=== PATIENT | female | born 1960 | race Caucasian/White ===

== ENCOUNTER → 2017-10-10 | Outpatient (CLI) | payer BC ==
[~2017-10-10] MED LIST: ACE325 PO; LOR5 PO; VITAMINS
--- NOTE | 2017-10-10 11:23 | RADIOLOGY IMAGING REPORT ---
FACILITY: [facility] PATIENT NAME: Vandana Benito : 1960 MR: [id number] V: [id number] EXAM DATE: ORDERING PHYSICIAN: POLLY BACON TECHNOLOGIST: Location: [facility] Patient: Vandana Benito : 1960 Visit/Account:[id number] Date of Sevice: 10/10/2017 Chest 2 views: HISTORY: Malignant pleural effusion, cough, lung cancer COMPARISON: 06/27/2017 FINDINGS: Frontal and lateral chest: Since prior study, left chest port has been placed with catheter placement via a left IJ approach. Tip of the catheter is near the right atrial SVC junction. There is persistent opacification of the left upper lobe now with some associated volume loss. Left hemid iaphragm is elevated posteriorly. Opacification likely combination of atelectasis and/or infiltrate and underlying neoplasm per the history. No definite pleural effusion is present. Right lung is candy ar. Heart size is difficult to assess due to adjacent opacity. No pneumothorax is identified. Pulm onary vasculature is grossly normal. Degenerative changes are present in the thoracic spine. IMPRESSION: 1. Interval placement of a left chest port, catheter tip near the right atrial SVC junction. 2. Opacification involving the left upper lobe similar to previous although there is increasing volu me loss on the left as evidenced by elevation of the left hemidiaphragm. No definite pleural effusio n present. 3. Right lung is clear. Report Dictated By: Cynthia Gorman MD at 10/10/2017 11:11 AM Report E-Signed By: Cynthia Gorman MD at 10/10/2017 11:18 AM WSN:[id number]
--- NOTE | 2017-10-10 13:46 | RADIOLOGY IMAGING REPORT ---
FACILITY: [facility] PATIENT NAME: Vandana Benito : 1960 MR: [id number] V: [id number] EXAM DATE: ORDERING PHYSICIAN: POLLY BACON TECHNOLOGIST: Location: [facility] Patient: Vandana Benito : 1960 Visit/Account:[id number] Date of Sevice: 10/10/2017 CHEST W/O CONTRAST History: Left upper lobe malignancy TECHNIQUE: Contiguous axial images were performed through the chest to the level of the adrenal gla nds. No IV contrast was administered. Coronal and sagittal reformatting was also performed. One of t he following dose optimization techniques was utilized in the performance of this exam: Automated exp osure control; adjustment of the mA and/or kV according to the patient's size; or use of an iterative reconstruction technique. Specific details can be referenced in the facility's radiology CT exam o perational policy. COMPARISON STUDIES: Comparison made to previous chest CT 06/27/2017 and comparison made to a PET/CT performed on 08/21/2017. Lungs / Pleura: There was increase in consolidation of the left upper lobe between the June and August comparison studies listed above. There is complete consolidation the left upper lobe. This m ay represent expansion of the known biopsy-proven bronchogenic malignancy but could also represent a component of obstructive atelectasis. Interval development of a small left pleural effusion. There is interstitial prominence seen in the left lung base which is stable and there is also a stable 2.5 cm bulla in the left lower lobe. In the right lung there are 3 micronodules identified seen axial images 49, 58 and 67 series 3. They all measure 2 mm in diameter.Two of the 3 nodules are identified in the June study. The third nodu le is near the diaphragm and is not seen on the prior study but could easily have been volume average d out by respiratory motion. Mediastinum/nodes: There is no adenopathy. The largest mediastinal lymph node measures 1.1 cm diamet er. The previous PET/CT demonstrated left axillary and left basicervical lymph nodes demonstrating wa rm glucose uptake. Morphologically they appear within normal limits but per previous PET could reflec t early jj disease. Heart and vessels: negative. Musculoskeletal / Body wall: negative. Upper abdomen: Visualized portions of the liver appear normal. IMPRESSION: Completely consolidated left upper lobe with accompanying small left pleural effusion. There is a kno wn left upper lobe bronchogenic malignancy but some of the consolidated lung represents obstructive a telectasis. Several micronodules in the right lung. One appears new since June but could easily have been volu me averaged out on the prior study since it is near the diaphragm which is affected by respiratory mo tion. On this examination there is no definite evidence of metastatic disease outside of the left lung but previous PET/CT raised concern for early jj involvement in the left axilla and neck. Report Dictated By: Ben Tovar MD at 10/10/2017 1:25 PM Report E-Signed By: eBn Tovar MD at 10/10/2017 1:42 PM WSN:[id number]
== END ==
LOC: CT 10:42
PROVIDERS: ATTEND Internal Medicine
DX: R91.8 Other nonspecific abnormal finding of lung field (principal); J90 Pleural effusion, not elsewhere classified
CPT/HCPCS: 71046; 71250

== ENCOUNTER 2017-12-26 16:11 | Emergency (ER) | payer BC ==
[~2017-12-26 16:11] MED LIST changes: +CEPH500T7 PO; +CLIN30SO TOP; +LORA-1455 PO; +PROC10TA4 PO; +TRIA15CR40 TP; +[UNRECOGNIZED DRUG - CODE] PO
--- NOTE | 2017-12-26 16:19 | ER Report ---
History and Physical Time Seen By MD: 16:18 HPI/ROS CHIEF COMPLAINT: Red streaking to bilateral lower extremity HISTORY OF PRESENT ILLNESS: 57-year-old female patient presents to emergency room with complaint of red streaking to the bilateral lower extremities. Patient states she woke up this morning with the red streaks. Patient denies having any pain to them. Patient states she does have a significant amount of itching there. She states she is not taking any medication for this. She did contact the cancer center. She states they're concerned about possible DVT and recommended she come up to the emergency room for evaluation. Patient states that she's not had any DVTs in the past, averages have a history of lung cancer. Patient has not taken any medication for this. She states that her lower legs are itchy just for the red streaks are and nowhere else. REVIEW OF SYSTEMS: Respiratory: No cough, no dyspnea. Cardiovascular: No chest pain, no palpitations. Gastrointestinal: No vomiting, no abdominal pain. Musculoskeletal: No back pain. Allergies: Coded Allergies: No Known Drug Allergies (Verified , 12/26/17) Home Meds Active Scripts Hydroxyzine Hcl (HYDROXYZINE HCL) 25 Mg Tablet, 25 MG PO QID Y for ITCHING, #20 TAB Prov:LUISA ANGLIN [facility] 12/26/17 Prochlorperazine Maleate (Compazine) 10 Mg Tablet, 10 MG PO Q6H, #30 TAB 3 Refills Prov:[facility], [facility] 10/21/17 Lorazepam (ATIVAN) 0.5 Mg Tablet, 0.5 MG PO Q4-6H Y for NAUSEA for 30 Days, #30 TAB 1 Refill Prov:[facility] 10/21/17 Erlotinib (TARCEVA) 150 Mg Tab, 150 MG PO DAILY, #30 TAB 11 Refills Prov:[facility]HELLE [facility] 10/21/17 Reported Medications Cephalexin 500 Mg Tab (KEFLEX 500 MG TAB) 500 Mg Tablet, 500 MG PO Q12H, #20 TAB 12/10/17 Clindamycin Phosphate (Clindamycin Phosphate) 1 % Solution, TOP BID 11/26/17 Triamcinolone Acetonide 0.1% Cr 15 Gm Tube (TRIAMCINOLONE ACETONIDE 0.1% CREAM) 15 Gm Cream..g., 15 GM TP BID, TUBE 11/18/17 Acetaminophen/Hydrocodone (Lortab 5/500) 5 Mg/500 Mg Tab, 1 TAB PO Q6H Y, #15 0 Refills 03/28/11 Acetaminophen (Tylenol) 325 Mg Tab, 1 - 2 TAB PO ONCE, 0 Refills 03/28/11 Discontinued Reported Medications [Vitamins] No Conflict Check, 0 Refills 03/28/11 Past Medical/Surgical History Patient has a past medical history of lung cancer. Patient has surgical history of sinus surgery. Reviewed Nurses Notes: Yes Hx Smoking: No Smoking Status: Never Smoker Hx Substance Use Disorder: No Hx Alcohol Use: No Constitutional Vital Sign - Last 24 Hours 12/26/17 16:18 Temp 98.7 Pulse 62 Resp 20 B/P (MAP) 145/91 Pulse Ox 97 O2 Delivery Nasal Cannula Physical Exam General Appearance: The patient is alert, has no immediate need for airway protection and no current signs of toxicity. Respiratory: Chest is non tender, lungs are clear to auscultation. Cardiac: regular rate and rhythm Gastrointestinal: Abdomen is soft and non tender, no masses, bowel sounds normal. Musculoskeletal: Neck: Neck is supple and non tender. Extremities have full range of motion and are non tender. Patient has 1+ edema to bilateral lower extremities. Skin: No rashes or lesions. Patient has red streaking study bilateral lower extremity is, the red streaks go from ankle to the knee. DIFFERENTIAL DIAGNOSIS: After history and physical exam differential diagnosis was considered for allergic reaction, rash, DVT. Medical Decision Making Data Points Result Diagram: 12/26/17 1644 Laboratory Hematology Test 12/26/17 16:44 Red Blood Count 5.08 M/uL (4.17-5.56) Mean Corpuscular Volume 84.8 fL (80.0-96.0) Mean Corpuscular Hemoglobin 29.3 pg (26.0-33.0) Mean Corpuscular Hemoglobin Concent 34.5 g/dL (32.0-36.0) Red Cell Distribution Width 14.3 % (11.5-14.5) Mean Platelet Volume 8.2 fL (7.2-11.1) Neutrophils (%) (Auto) 61.1 % (39.4-72.5) Lymphocytes (%) (Auto) 25.9 % (17.6-49.6) Monocytes (%) (Auto) 9.7 % (4.1-12.4) Eosinophils (%) (Auto) 2.8 % (0.4-6.7) Basophils (%) (Auto) 0.5 % (0.3-1.4) Nucleated RBC Relative Count (auto) 0.0 /100WBC Neutrophils # (Auto) 5.3 K/uL (2.0-7.4) Lymphocytes # (Auto) 2.2 K/uL (1.3-3.6) Monocytes # (Auto) 0.8 K/uL (0.3-1.0) Eosinophils # (Auto) 0.2 K/uL (0.0-0.5) Basophils # (Auto) 0.0 K/uL (0.0-0.1) Nucleated RBC Absolute Count (auto) 0.00 K/uL Prothrombin Time 13.5 seconds (12.0-14.4) Prothromb Time International Ratio 1.03 Activated Partial Thromboplast Time 50 seconds (23-35) Chemistry Test 12/26/17 16:44 White Blood Count 8.7 k/uL (4.5-11.0) Red Blood Count 5.08 M/uL (4.17-5.56) Hemoglobin 14.9 g/dL (12.0-16.0) Hematocrit 43.1 % (34.0-47.0) Mean Corpuscular Volume 84.8 fL (80.0-96.0) Mean Corpuscular Hemoglobin 29.3 pg (26.0-33.0) Mean Corpuscular Hemoglobin Concent 34.5 g/dL (32.0-36.0) Red Cell Distribution Width 14.3 % (11.5-14.5) Platelet Count 232 K/uL (150-450) Mean Platelet Volume 8.2 fL (7.2-11.1) Neutrophils (%) (Auto) 61.1 % (39.4-72.5) Lymphocytes (%) (Auto) 25.9 % (17.6-49.6) Monocytes (%) (Auto) 9.7 % (4.1-12.4) Eosinophils (%) (Auto) 2.8 % (0.4-6.7) Basophils (%) (Auto) 0.5 % (0.3-1.4) Nucleated RBC Relative Count (auto) 0.0 /100WBC Neutrophils # (Auto) 5.3 K/uL (2.0-7.4) Lymphocytes # (Auto) 2.2 K/uL (1.3-3.6) Monocytes # (Auto) 0.8 K/uL (0.3-1.0) Eosinophils # (Auto) 0.2 K/uL (0.0-0.5) Basophils # (Auto) 0.0 K/uL (0.0-0.1) Nucleated RBC Absolute Count (auto) 0.00 K/uL Prothrombin Time 13.5 seconds (12.0-14.4) Prothromb Time International Ratio 1.03 Activated Partial Thromboplast Time 50 seconds (23-35) Coagulation Test 12/26/17 16:44 Prothrombin Time 13.5 seconds Prothromb Time International Ratio 1.03 Activated Partial Thromboplast Time 50 seconds EKG/Imaging Imaging Exam type: VENOUS DOPP LOWER BILAT EXTREM History: Redness and swelling of lower extremities Comparison: June 27, 2017. Findings: Lower extremity veins were imaged bilaterally including the common femoral veins greater saphenous veins superficial femoral veins popliteal veins posterior tibial veins peroneal veins and anterior tibial veins revealing no evidence of intraluminal thrombi. The veins were compressible and demonstrated augmentation IMPRESSION: 1. No sonographic evidence of DVT involving the lower extremity veins bilaterally Report Dictated By: Jacinta Bateman MD at 12/26/2017 6:13 PM Report E-Signed By: Jacinta Bateman MD at 12/26/2017 6:14 PM ED Course/Re-evaluation ED Course Patient has a medication exam room, history and physical were obtained. Differential diagnoses were considered. On examination patient had red streaking to the anterior aspect of the lower leg. Patient states they've been itching all day. I believe this likely a rash, could be secondary to her Tarceva that she is taking, however I'm uncertain. I discussed this with the patient. We will go ahead and do an ultrasound to make sure there is not a DVT. A CBC and PT and PTT were done. The results were negative. Ultrasound lower extremities was done which was also negative. I discussed the findings with the patient. We will go ahead and discharge her home at this time. We will give her a prescription for hydroxyzine to help with her itching. Discusses patient who verbalized understanding and agreement. I did attempt to contact the cancer Center while she is here to see if I get an appointment for. As I was unable to we will go ahead and discharge patient home and have her make a follow-up appointment tomorrow. Patient verbalized understanding and agreement with plan. Decision to Disposition Date: Dec 26, 2017 Decision to Disposition Time: 18:07 Depart Departure Latest Vital Signs Vital Signs Date Time Temp Pulse Resp B/P (MAP) Pulse Ox O2 Delivery O2 Flow Rate FiO2 12/26/17 16:18 98.7 62 20 145/91 97 Nasal Cannula Impression: Primary Impression: Rash Condition: Improved Disposition: HOME OR SELF-CARE Referrals: ERIC CHURCH MD (PCP) New Scripts Hydroxyzine Hcl (HYDROXYZINE HCL) 25 Mg Tablet 25 MG PO QID Y for ITCHING, #20 TAB Prov: LUISA ANGLIN 12/26/17 Patient Instructions: Acute Rash (ED) Additional Instructions: This could be caused by the medications or something that you came in contact with last night. Take medication as needed for itching. Get plenty of rest. Follow up with the cancer center, call tomorrow to make an appointment. I did try to call them but was unable to get through to them. Return to the ER if condition worsens. LUISA ANGLIN Dec 26, 2017 16:19
[2017-12-26 16:50] LABS: PLATELET COUNT, AUTOMATED 232 K/uL (150-450)
[2017-12-26 16:59] LABS: INR 1.03
[2017-12-26] MEDS ORDERED: HYDR-4225 PO (18:06)
[2017-12-26] MEDS ORDERED: HEPARIN FLSH (PORT) 500 UN/5ML IVP ONE (18:15)
--- NOTE | 2017-12-26 18:19 | RADIOLOGY IMAGING REPORT ---
FACILITY: [facility] - [place] PATIENT NAME: Vandana Benito : 1960 MR: [id number] V: [id number] EXAM DATE: [id number] ORDERING PHYSICIAN: LUISA ANGLIN TECHNOLOGIST: Location: [facility] [place] Patient: Vandana Benito : 1960 Visit/Account:[id number] Date of Sevice: 12/26/2017 Exam type: VENOUS DOPP LOWER BILAT EXTREM History: Redness and swelling of lower extremities Comparison: June 27, 2017. Findings: Lower extremity veins were imaged bilaterally including the common femoral veins greater saphenous ve ins superficial femoral veins popliteal veins posterior tibial veins peroneal veins and anterior tibi al veins revealing no evidence of intraluminal thrombi. The veins were compressible and demonstrated augmentation IMPRESSION: 1. No sonographic evidence of DVT involving the lower extremity veins bilaterally Report Dictated By: Jacinta Bateman MD at 12/26/2017 6:13 PM Report E-Signed By: Jacinta Bateman MD at 12/26/2017 6:14 PM WSN:[id number]
[2017-12-26 18:30] VITALS: BP 139/86
== END 2017-12-26 18:29 | disposition home or self-care (01) ==
LOC: ER 16:43
DX: R21 Rash and other nonspecific skin eruption (principal); Z85.118 Personal history of other malignant neoplasm of bronchus and lung; R60.0 Localized edema; M79.89 Other specified soft tissue disorders
CPT/HCPCS: 85025; 85610; 85730; 93970; 99284; J1642

== ENCOUNTER 2018-01-08 10:30 | Outpatient (RCR) | payer BC ==
--- NOTE | 2017-10-21 15:06 | ONC Progress Note - NP.Halsey ---
Patient History Date of Service Oct 21, 2017 Reason For Visit/HPI Patient is a 57-year-old female who is referred by Dr. Lozano and Dr. Jim for her newly diagnosed lung adenocarcinoma. Patient presented with wheezing, cough and shortness of breath. Patient is here today for education prior to starting treatment with oral Tarceva. She has a friend with her today. 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 Patient is currently on oxygen therapy 2 L per nasal cannula. Patient had flu vaccination in May and has not had a pneumonia vaccination. Problem List (1) Requires oxygen therapy (2) H/O shortness of breath (3) Non-small cell carcinoma of lung Oncology History Patient is a 57-year-old female who presented with newly diagnosed lung adenocarcinoma. She presented with wheezing, cough and shortness of breath. 06/17/2017 CT angiogram shows no pulmonary embolism but consolidation of the left upper lobe was noted 08/02/2017: CT chest worsening consolidation of the left upper lobe. 08/08/2017: Bronchoscopy with pathology showing malignant cells which were adenocarcinoma of lung origin. 08/21/2017: PET/CT with hypermetabolic uptake in the subcarinal area, hypermetabolic bilateral supraclavicular and base of the neck lymph nodes 09/11/2017 MRI of the brain no metastasis Patient presented with good energy level, 30 pound weight loss over 6 months. 10/21/2017 education regarding oral Tarceva. Psychosocial History Social History Patient is single, currently lives with her mother and provides care. 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 Alcohol History She denies abuse Recreational Drug History No use Smoking History: No Smoking Status: Never Smoker Medications and Allergies Active Scripts Prochlorperazine Maleate (Compazine) 10 Mg Tablet, 10 MG PO Q6H, #30 TAB 3 Refills Prov:MICHELLE LINK-BC, ONC 10/21/17 Lorazepam (ATIVAN) 0.5 Mg Tablet, 0.5 MG PO Q4-6H Y for NAUSEA for 30 Days, #30 TAB 1 Refill Prov:MICHELLE LINK, ONC 10/21/17 Erlotinib (TARCEVA) 150 Mg Tab, 150 MG PO DAILY, #30 TAB 11 Refills Prov:MICHELLE LINK-ALYSSIA, ONC 10/21/17 Reported Medications Acetaminophen/Hydrocodone (Lortab 5/500) 5 Mg/500 Mg Tab, 1 TAB PO Q6H Y, #15 0 Refills 03/28/11 Acetaminophen (Tylenol) 325 Mg Tab, 1 - 2 TAB PO ONCE, 0 Refills 03/28/11 [Vitamins] No Conflict Check, 0 Refills 03/28/11 Discontinued Scripts Prochlorperazine Maleate (Compazine) 10 Mg Tablet, 10 MG PO Q6H, #30 TAB 3 Refills Prov:MICHELLE LINK [facility]-, ONC 10/21/17 Lorazepam (ATIVAN) 0.5 Mg Tablet, 0.5 MG PO Q4-6H Y for NAUSEA for 30 Days, #30 TAB 1 Refill Prov:MICHELLE LINK [facility], ONC 10/21/17 Allergies: Coded Allergies: No Known Drug Allergies (Verified , 03/28/11) Review of System/Physical Exam Review of Systems All Systems Reviewed/Normal: Yes, Except as Noted Respiratory: Positive for Shortness of Breath Hematologic: Positive for Fatigue Physical Exam Vital Signs Temperature: Pulse: BP Systolic: BP Diastolic: Respiratory Rate: O2 SAT: O2 Delivery: Height (inches) Weight lb: Weight oz: Weight Kg (Justice): Pain: ECOG Score: 1 General: Stable, Well Developed, Well Nourished, Not In Acute Distress, Other ( on oxygen therapy per nasal cannula) Lungs: Other (patient has port in the left subclavian chest wall.) Psychiatric: Mood appears normal, Affect appears normal, Other (she has a friend with her today. Patient is alert and oriented and appears to understand her form of treatment and management of her disease.) Chemo Education Chemotherapy Education: Patient is seen today for education regarding treatment with oral Tarceva. Patient will take 150 mg by mouth daily 1 hour before meals or 2 hours after labs will be monitored monthly with a CMP The treatment schedule and associated appointments were discussed and reviewed. A print out will be given to the patient. The intent for treatment is palliative. Consent for treatment was completed prior to receiving treatment. Side effects possible with oral Tarceva may include interstitial lung disease with symptoms of lung problems to include shortness of breath, cough and fever. Liver and kidney problems with creatinine changes. Gastrointestinal perforation which may include a whole that develops in the stomach or intestine. Patient is encouraged to avoid NSAIDs and steroids. Serious skin conditions such as blistering and skin peeling. Education material regarding side effects and management of side effects of these above possibilities were reviewed with patient today. Patient understands that she is to take medication once a day the same time daily if possible one hour before or 2 hours after eating. Tarceva can cause harm to an unborn baby. Patient is not at an age for breast- feeding or conceiving. Patient is to contact the clinic if she experiences any side effects listed above. If patient has diarrhea she is encouraged to use Imodium right ear [id number] as instructed. If symptoms continue over 48 hours she is to call the clinic. Patient is not to take any herbal supplements or grapefruit or grapefruit juice while taking Tarceva. Patient will moisturize hands and feet using alcohol free moisturizer products. If her rash develops patient is to call the clinic and may be prescribed steroid therapy at that time. Patient is to keep the medication in a dry place and away from children. Patient is encouraged to wash hands after administration. Prescriptions for Compazine 10 mg when necessary nausea and Ativan 0.5 mg when necessary anxiety and nausea were sent to selected pharmacy. Side effects of both medications were also reviewed today. A consent was signed. Assessment and Plan Assessment & Plan This is a 57-year-old woman who consult it with Dr. Lozano and Dr. Valle for her newly diagnosed lung adenocarcinoma. Patient was noted to have consolidation in the left upper lobe. PET/CT scan showed hypermetabolic uptake in the subcarinal area, hypermetabolic bilateral supraclavicular and base of the neck lymph nodes. No brain metastasis noted. Patient will start therapy with oral Tarceva 150 mg daily as soon as insurance has approved it. Compazine and Ativan were prescribed. Patient will follow monthly with a CBC and CMP and port flush. Consent was was signed. I would like to have patient come into the clinic when she receives the medication so we can verify correct dosage prior to starting an answer any questions that she may have at that time. Patient at that time we'll have a port flush, CBC and a CMP. Patient agrees with this plan of care. She has not had a pneumonia vaccination so will receive Prevnar 13 today this will be followed by PPSV 23 in 8 weeks. I personally spent a total of 40 minutes. Of that 40 minutes was counseling/ coordination of patient's care. See my note above for details. Copies to: ESTELLA VALLE MD; BEN LOZANO MD, NANCY J TOMATO PULPER OPERATOR-BC, ONC Oct 21, 2017 15:06
[2017-10-21 15:45] VITALS: BP 142/75
[2017-10-28 13:17] VITALS: BP 142/91
[2017-10-28 13:39] LABS: PLATELET COUNT, AUTOMATED 264 K/uL (150-450)
[2017-10-28] MEDS: LIDOCAINE/SOD BICARB 8.4% SYR ID PRN (13:44)
[2017-10-28] MEDS: HEPARIN FLSH (PORT) 500 UN/5ML IVP PRN (13:44)
[2017-11-18] MEDS: LIDOCAINE/SOD BICARB 8.4% SYR ID PRN (14:42)
[2017-11-18] MEDS: HEPARIN FLSH (PORT) 500 UN/5ML IVP PRN (14:42)
[2017-11-18 15:21] LABS: PLATELET COUNT, AUTOMATED 267 K/uL (150-450)
[2017-11-20 13:35] VITALS: BP 129/71
--- NOTE | 2017-11-21 18:13 | ONCOLOGY FOLLOW UP NOTE ---
EVENT DATE: November 20, 2017 REASON FOR FOLLOWUP Metastatic lung adenocarcinoma, estimated EGFR Exon 19 mutation. INTERIM HISTORY Ms. Benito returns to clinic for a follow-up visit today. She is accompanied by her mother. To review, she had previously been followed by Dr. Valle with [facility] in [place], [place]. She had presented in June of 2017 with wheezing, cough, and shortness of breath. A CT angiogram of the chest performed at that time showed no evidence of PE, but there was a consolidation of the left upper lobe. A follow-up CT scan of the chest on August 02 showed worsening consolidation of the left upper lobe, and the patient was sent for bronchoscopy. This was performed on August 08. Pathology revealed evidence of malignant cells, consistent with adenocarcinoma of lung origin. On August 21, [address] PET scan which revealed a hypermetabolic consolidation of the left lower lobe, a 3.5 cm left lower lobe bulla with borderline hypermetabolism, and mild hypermetabolic uptake in the subcarinal area. There was also hypermetabolic bilateral supraclavicular and base of neck lymph nodes. An MRI of the brain performed on September 11 revealed no evidence of TRANSPORTATION DESIGN ENGINEER metastatic disease. An ultrasound guided left thoracentesis was subsequently performed on September 20, and malignant cells were noted, again compatible with metastatic adenocarcinoma of lung origin. Molecular profiling studies were appropriately requested, and an estimated EGFR Exon 19 deletion was noted. There have been insurance associated delays, but the patient was able to begin palliative erlotinib therapy about two weeks ago. Today, the patient reports that she is perhaps feeling a bit better than she had a couple of weeks ago. She remains on supplemental oxygen, but she does get short of breath with exertion. She has an occasional cough, and recently she has had small spots of blood in the sputum. She denies chest pain. Her appetite has been pretty good. She has had loose stools. She has tried Imodium here and there, but she is not using it as much as she could. She has developed a mild acneiform skin rash over the face, chest, and back. She has been using topicals for this with success. The patient lives in [place], and she is here to establish care in this clinic for ease of followup. REVIEW OF SYSTEMS Review of systems is otherwise negative, and all systems were reviewed. ONCOLOGY HISTORY Please see history of present illness. PAST MEDICAL HISTORY 1. Lung adenocarcinoma, as above. 2. Gastroesophageal reflux disease. 3. Hypertension. 4. History of migraine headaches. 5. History of "arthritis." CURRENT MEDICATIONS 1. Triamcinolone cream. 2. Compazine p.r.n. 3. Ativan p.r.n. 4. Tarceva 150 mg p.o. daily. 5. Lortab p.r.n. 6. Tylenol p.r.n. 7. Multivitamin. ALLERGIES No known drug allergies. SOCIAL HISTORY Patient is a nonsmoker. There is no history of alcohol abuse or illicit drug use. FAMILY HISTORY Noncontributory. VITAL SIGNS Temperature is 98.5, blood pressure 129/71, heart rate is 70, respirations 16, oxygen saturation is 94% on 2L nasal cannula. Weight is 107.1 g. PHYSICAL EXAMINATION GENERAL: Patient is alert and oriented times three, in no apparent distress sitting in the exam room chair. She is in good spirits and quite interactive. HEENT: Exam reveals anicteric sclerae. NEUROLOGIC: Exam is grossly nonfocal and her gait is normal. EXTREMITIES: Exam reveals no edema, clubbing or cyanosis. SKIN: Exam reveals a modest/diffuse acneiform rash over the face and neck. LABORATORY STUDIES Reviewed per the [employer] record. IMAGING Please see history of present illness. PATHOLOGY Please see history of present illness. ASSESSMENT AND PLAN Stage IV lung adenocarcinoma, estimated EGFR Exon 19 mutation. I had a good visit with Vandana and her mother today. Symptomatically, she seems to be holding her own. Side effects from Tarceva have been moderate to this point, but expected. Nausea has not been particularly prominent, but she has had loose stools. I have recommended that she increase her use of Imodium to help with this. She has developed a skin rash, but topicals are holding this in check for the time being. Her breathing has not improved substantially, but she has only been on the Tarceva for about two weeks. She remains on supplemental oxygen, and she does get winded with exertion. We will have her ambulate in the clinic today to see whether she may be able to come off of her oxygen. Her labs reveal a mild hypokalemia, likely due to diarrhea. We discussed the use of electrolyte fluids and sports drinks, for example. If she gets her diarrhea under control, this will likely normalize quickly. She has no significant pain at this time. Her performance status is excellent. We discussed the hope that her symptoms will show gradual improvement over time, and that she will continue to have followup here as she continues with palliative erlotinib therapy. I would like to see her back in clinic in one month's time, or sooner if there are questions or concerns. She agrees with this plan. I spent a total of 45 minutes with the patient today, and roughly 40 minutes of this was spent in direct counseling and coordination of care. ROSALIND
[2017-11-27 08:11] VITALS: BP 128/72
--- NOTE | 2017-11-27 09:18 | ONCOLOGY FOLLOW UP NOTE ---
EVENT DATE: November 27, 2017 REASON FOR FOLLOWUP Metastatic lung adenocarcinoma, EGFR Exon 19 mutation. INTERIM HISTORY Ms. Benito returns to clinic for a followup visit today. She is accompanied by her mother. Since I saw her last week, she has continued to have problems with erlotinib rash. She has had more itching of the upper chest, neck, face and back. At times, it is disturbing her sleep. She does continue to use topicals. These have been modestly effective, but the itching persists. She feels that her breathing has improved somewhat. She has been checking her O2 saturation at home at rest, and her saturation usually is in the neighborhood of 90%. She denies chest pain. She has had minimal cough. Her appetite is fair, and her taste for food has changed. She feels that she has lost about a pound over the past week or two. She has gotten her diarrhea under control with Imodium. She reports no new urinary symptoms. Her energy level is fair, and she is able to keep up with her activities of daily living. REVIEW OF SYSTEMS Review of systems is otherwise negative, and all systems were reviewed. ONCOLOGY HISTORY 1. Metastatic lung adenocarcinoma, EGFR Exon 19 mutation. a. June 2017, patient presents with wheezing, cough and shortness of breath. b. CT angiogram at that time shows no evidence of PE, but there was consolidation of left upper lobe. c. Followup CT scan on August 02, 2017 shows worsening consolidation of the left upper lobe, and patient is sent for bronchoscopy. d. August 08, 2017: Bronchoscopy is performed. Pathology reveals evidence of malignant cells, consistent with adenocarcinoma of lung origin. e. August 21, 2017: Patient undergoes CT PET scan, which reveals hypermetabolic consolidation of left lower lobe, and a 3.5 cm left lower lobe bulla with borderline hypermetabolism and mild hypermetabolic uptake in the subcarinal area. There was also bilateral supraclavicular and base of neck lymph nodes. f. September 11, 2017, MRI brain: No evidence of OFFICE SERVICES CLERK metastatic disease. g. September 20, 2017, patient undergoes ultrasound-guided left thoracentesis. Pathology again revealed malignant cells, compatible with metastatic adenocarcinoma of lung origin. Molecular profiling studies are performed, revealing EGFR Exon 19 deletion. h. Early October,: Patient begins palliative erlotinib after some insurance delays. PAST MEDICAL HISTORY 1. Lung adenocarcinoma, as above. 2. Gastroesophageal reflux disease. 3. Hypertension. 4. History of migraine headaches. 5. History of "arthritis." CURRENT MEDICATIONS 1. Triamcinolone cream. 2. Compazine p.r.n. 3. Ativan p.r.n. 4. Tarceva 150 mg p.o. daily. 5. Lortab p.r.n. 6. Tylenol p.r.n. 7. Multivitamin. 8. Clindamycin cream b.i.d. p.r.n. ALLERGIES No known drug allergies. SOCIAL HISTORY Patient is a nonsmoker. There is no history of alcohol abuse or illicit drug use. FAMILY HISTORY Noncontributory. VITAL SIGNS Temperature is 97.6, blood pressure 128/72, pulse is 53, respirations 16, oxygen saturation is 90% on 2 liters. Weight is 105 kg. PHYSICAL EXAMINATION GENERAL: Patient is alert and oriented x 3, in no apparent distress sitting in the exam room chair. She is interactive and pleasant. She is wearing O2 by nasal cannula. HEENT: Exam reveals anicteric sclerae. LUNGS: Exam reveals diminished breath sounds in the bilateral bases, but no wheezing or rales. HEART: Exam reveals regular rate and rhythm. NEUROLOGIC: Exam is grossly nonfocal and her gait is normal. SKIN: Exam reveals acneiform rash, which is modest, over the upper chest, neck , face and upper back. There are some excoriations. There are no other concerning lesions. LABORATORY STUDIES Reviewed per the [employer] record. IMAGING None today. ASSESSMENT AND PLAN Metastatic lung adenocarcinoma, EGFR Exon 19 mutation; erlotinib rash. I had a good visit with Ms. Benito today. We spent time discussing her ongoing experience with palliative erlotinib. To date, she has tolerated treatment with reasonable toxicity. Her GI symptoms are under better control. Imodium has been effective for diarrhea. Nausea has been pretty minimal. Her cough has improved, and it seems that her breathing has some shown some improvement over time as well. For her worsened erlotinib rash, I do not think that it is significant enough to make a dose reduction or hold the medication, but I do think she could benefit from trying an oral antibiotic such as doxycycline. I will write this for her today. She will also ambulate in the hallway to see whether she can liberate herself from her supplemental oxygen. I will make a referral to nutrition, as she does continue to slowly lose weight. I have also recommended that she go to the pharmacy to pick up truck driver a Claritin or Zyrtec, for example, to help her with itching during the day. She can also pick up truck driver some Benadryl to try at night to help with itching and sleep. I will plan to see her back in clinic in about four to six weeks. At that time, we will likely make arrangements for followup CT PET imaging to assess response. The patient and her mother had several further questions for me today, and I believe I answered all of their questions to their satisfaction. ROSALIND
[2017-12-16 13:39] VITALS: BP 143/75
[2018-01-06 12:15] VITALS: BP 126/70
[2018-01-06 12:30] LABS: PLATELET COUNT, AUTOMATED 261 K/uL (150-450)
[~2018-01-08] VITALS: Ht 166.4 cm; Wt 106.8 kg
[~2018-01-08 10:30] MED LIST changes: +ALTEPLASE RECOMB 2 MG VIAL IVP PRN; +DEXTROSE 5%(*) 100 ML BAG 100 ML IVPB PRN; +HYDR-4225 PO; +NS(*) 0.9% 100 ML BAG 100 ML IVPB PRN; +NS(*) 0.9% 500 ML BAG 500 ML IV PRN; +PNEUMOC 13-VAL CONJ-DIP CRM/PF 0.5 ML SYR IM ONLY ONE; +PNEUMOCOC VAC POLY 25MCG/0.5ML IM ONLY ONE; +WATER STERILE 10 ML VIAL IVP PRN
[2018-01-08 10:34] VITALS: BP 141/80
[2018-01-08] MEDS: LIDOCAINE/SOD BICARB 8.4% SYR ID PRN (11:56)
[2018-01-08] MEDS: HEPARIN FLSH (PORT) 500 UN/5ML IVP PRN (11:57)
--- NOTE | 2018-01-08 17:51 | ONCOLOGY FOLLOW UP NOTE ---
EVENT DATE: January 08, 2018 REASON FOR FOLLOWUP Metastatic lung adenocarcinoma, EGFR Exon 19 mutation. INTERIM HISTORY Ms. Benito returns to clinic for a follow-up visit today. She is accompanied by a friend. She reports that she has been doing a bit better since our last visit. She had used doxycycline for a period of time for a skin rash, but she is no longer requiring it. She continues to use topicals with some success at home. She does report good diarrhea control with Imodium, which she tends to take about twice a day on average. Her energy level has been about the same, but she has noticed some potential improvement in her breathing, and she has been able to get away without her oxygen at times during the day. She reports no new pain. She remains on Tarceva, and she feels that her tolerance to the medication has improved somewhat. REVIEW OF SYSTEMS Otherwise negative, and all systems were reviewed. ONCOLOGY HISTORY 1. Metastatic lung adenocarcinoma, EGFR Exon 19 mutation. a. June 2017, patient presents with wheezing, cough and shortness of breath. b. CT angiogram at that time shows no evidence of PE, but there was consolidation of left upper lobe. c. Followup CT scan on August 02, 2017 shows worsening consolidation of the left upper lobe, and patient is sent for bronchoscopy. d. August 08, 2017: Bronchoscopy is performed. Pathology reveals evidence of malignant cells, consistent with adenocarcinoma of lung origin. e. August 21, 2017: Patient undergoes CT PET scan, which reveals hypermetabolic consolidation of left lower lobe, and a 3.5 cm left lower lobe bulla with borderline hypermetabolism and mild hypermetabolic uptake in the subcarinal area. There was also bilateral supraclavicular and base of neck lymph nodes. f. September 11, 2017, MRI brain: No evidence of [employer] metastatic disease. g. September 20, 2017, patient undergoes ultrasound-guided left thoracentesis. Pathology again revealed malignant cells, compatible with metastatic adenocarcinoma of lung origin. Molecular profiling studies are performed, revealing EGFR Exon 19 deletion. h. Early October,: Patient begins palliative erlotinib after some insurance delays. CURRENT MEDICATIONS 1. Hydroxyzine p.r.n. 2. Topical clindamycin. 3. Topical triamcinolone. 4. Compazine p.r.n. 5. Ativan p.r.n. 6. Tarceva 150 mg p.o. daily. 7. Lortab p.r.n. 8. Tylenol p.r.n. ALLERGIES No known drug allergies. SOCIAL HISTORY Patient is a nonsmoker. There is no history of alcohol abuse or illicit drug use. FAMILY HISTORY Noncontributory. VITAL SIGNS Temperature is 97.1, blood pressure 141/80, hear rate is 64, respirations 16, oxygen saturation is 93% on 1 liter. Weight is 106.8 kg. PHYSICAL EXAMINATION GENERAL: Patient is alert and oriented times three, in no apparent distress sitting in the exam room chair. She is in good spirits, and quite interactive. HEENT: Exam reveals anicteric sclerae. NEUROLOGIC: Exam is grossly nonfocal and her gait is normal. EXTREMITIES: Exam reveals no edema, clubbing or cyanosis. There is no erythema or tenderness to palpation of bilateral extremities. SKIN: Exam reveals no concerning lesion, but she does have a Tarceva rash that is similar to prior. LABORATORY STUDIES [facility]. ASSESSMENT AND PLAN Metastatic lung adenocarcinoma, EGFR Exon 19 mutation. Ms. Benito continues on palliative Tarceva, which she is now tolerating better. She has been mitigating her symptoms at home, and she does feel that the treatment regimen is tolerable. We spent time discussing our strategy for re-imaging. She will be due for a follow-up CT PET scan in early January, and I will plan to see her back for a followup after the PET scan to review the results. We will have her ambulate in the hallway today to see if we can again try to get her off of her oxygen. ROSALIND
== END 2018-01-16 ==
LOC: ONC 10:30
PROVIDERS: ATTEND Surgery
DX: C34.12 Malignant neoplasm of upper lobe, left bronchus or lung (principal); Z23 Encounter for immunization; L27.0 Generalized skin eruption due to drugs and medicaments taken internally
CPT/HCPCS: 36415; 36591; 81001; 83735; 85025; 87088; 90471; 90670; 90732; 96523; 99212; J1642; 82040; 82247; 82310; 82374; 82435; 82565; 82947; 84075; 84132; 84155; 84295; 84450; 84460; 84520

== ENCOUNTER 2018-04-09 13:12 | Outpatient (RCR) | payer BC ==
[2018-01-31 16:13] VITALS: BP 133/78
[2018-01-31] MEDS: HEPARIN FLSH (PORT) 500 UN/5ML IVP PRN (16:24)
[2018-02-18 10:12] VITALS: BP 124/67
--- NOTE | 2018-02-19 04:10 | ONCOLOGY FOLLOW UP NOTE ---
EVENT DATE: February 18, 2018 REASON FOR FOLLOWUP Metastatic lung adenocarcinoma, EGFR Exon 19 mutation, ongoing therapy with palliative erlotinib. INTERIM HISTORY Ms. Benito returns to clinic for a followup visit today. Symptomatically, she reports that she has been doing a bit better. She is no longer on oxygen during the day, but she is using it at night. She reports no new pain. She denies fever. She has had an occasional cough. She has not been exercising much, she attributes this mostly to fatigue. She has had pretty regular bowel habits, but her biggest issue has been ongoing acneiform rash, especially over the chest and back. She is using moisturizers mostly for this. She has not been taking an antibiotic. She has undergone a CT PET scan, and she is here to review the results. REVIEW OF SYSTEMS Otherwise negative, and all systems were reviewed. ONCOLOGY HISTORY 1. Metastatic lung adenocarcinoma, EGFR Exon 19 mutation. a. June 2017, patient presents with wheezing, cough and shortness of breath. b. CT angiogram at that time shows no evidence of PE, but there was consolidation of left upper lobe. c. Followup CT scan on August 02, 2017 shows worsening consolidation of the left upper lobe, and patient is sent for bronchoscopy. d. August 08, 2017: Bronchoscopy is performed. Pathology reveals evidence of malignant cells, consistent with adenocarcinoma of lung origin. e. August 21, 2017: Patient undergoes CT PET scan, which reveals hypermetabolic consolidation of left lower lobe, and a 3.5 cm left lower lobe bulla with borderline hypermetabolism and mild hypermetabolic uptake in the subcarinal area. There was also bilateral supraclavicular and base of neck lymph nodes. f. September 11, 2017, MRI brain: No evidence of [employer] metastatic disease. g. September 20, 2017, patient undergoes ultrasound-guided left thoracentesis. Pathology again revealed malignant cells, compatible with metastatic adenocarcinoma of lung origin. Molecular profiling studies are performed, revealing EGFR Exon 19 deletion. h. Early October,: Patient begins palliative erlotinib after some insurance delays. i. CT PET scan performed on February 14, 2018: Interval positive response to therapy. Significant interval reexpansion of left upper lobe with some minimum consolidation in the lingula. FDG uptake in the consolidated left upper lobe now has a max SUV of 4.7, previously 13.4. Interval resolution of the FDG avid supraclavicular adenopathy with no new sites of disease. There is a small left- sided pleural effusion and a small pericardial effusion, which are new without FDG uptake. There are stable bullae in the left lower lobe without significant FDG uptake. CURRENT MEDICATIONS 1. Hydroxyzine p.r.n. 2. Topical clindamycin. 3. Topical triamcinolone. 4. Compazine p.r.n. 5. Ativan p.r.n. 6. Tarceva 150 mg p.o. daily. 7. Lortab p.r.n. 8. Tylenol p.r.n. ALLERGIES No known drug allergies. SOCIAL HISTORY Patient is a nonsmoker. There is no history of alcohol abuse or illicit drug use. FAMILY HISTORY Noncontributory. VITAL SIGNS Temperature is 98.2, blood pressure 124/67, heart rate 69, respirations 16, oxygen saturation is 92% on room air. Weight is 107.6 kg. PHYSICAL EXAMINATION GENERAL: Patient is alert and oriented x three, in no apparent distress, sitting in the exam room chair. She is very pleasant and interactive. HEENT: Exam reveals anicteric sclerae. NEUROLOGIC: Exam is grossly nonfocal and her gait is normal. EXTREMITIES: Exam reveals no edema, clubbing or cyanosis. SKIN: Exam reveals a diffuse acneiform rash over the chest and back, some with excoriation. LABORATORY STUDIES Reviewed per the [facility] record. IMAGING Please see oncology history. ASSESSMENT AND PLAN Metastatic lung adenocarcinoma, ongoing palliative erlotinib therapy. I had a very good visit with Ms. Benito today. Symptomatically, she seems to be doing gradually better. She is no longer on oxygen during the day, and this is a good sign. She is tolerating Tarceva with expected toxicity, with the biggest problems being rash, and to a lesser extent fatigue. We discussed rash management in detail today. I have written her a prescription for minocycline, and we discussed the rationale for antibiotic use. We moved on to discuss the results of her followup CT PET scan. The study shows very encouraging results with a significant reduction in the disease noted within the chest. She does have a very small pleural effusion and a small pericardial effusion that will need to be followed over time. The plan from here will be for her to continue with the Tarceva, to try to get the rash under better control with minocycline, and to follow up here with Meg, our nurse practitioner, in about six weeks. I will plan to see her back in three months after repeat CT PET scan, or sooner if there are questions or concerns. ROSALIND
[2018-02-28 13:31] VITALS: BP 155/69
[2018-02-28] MEDS: HEPARIN FLSH (PORT) 500 UN/5ML IVP PRN (13:48)
[2018-04-01 10:55] VITALS: BP 139/79
--- NOTE | 2018-04-01 12:13 | Oncology Progress Note ---
History of Present Illness Evaluation Evaluation Date: Apr 01, 2018 Evaluation Time: 10:30 Primary Care Provider Primary Care Provider: Pawel Huddleston Accompanied by Accompanied by: Self Last seen by : Shaun Chief Complaint Chief Complaint Generalized skin rash and itchiness. Oncology History Oncology History 1. Metastatic lung adenocarcinoma, EGFR Exon 19 mutation. a. June 2017, patient presents with wheezing, cough and shortness of breath. b. CT angiogram at that time shows no evidence of PE, but there was consolidation of left upper lobe. c. Followup CT scan on August 02, 2017 shows worsening consolidation of the left upper lobe, and patient is sent for bronchoscopy. d. August 08, 2017: Bronchoscopy is performed. Pathology reveals evidence of malignant cells, consistent with adenocarcinoma of lung origin. e. August 21, 2017: Patient undergoes CT PET scan, which reveals hypermetabolic consolidation of left lower lobe, and a 3.5 cm left lower lobe bulla with borderline hypermetabolism and mild hypermetabolic uptake in the subcarinal area. There was also bilateral supraclavicular and base of neck lymph nodes. f. September 11, 2017, MRI brain: No evidence of GRADES 7 AND 8 TEACHER metastatic disease. g. September 20, 2017, patient undergoes ultrasound-guided left thoracentesis. Pathology again revealed malignant cells, compatible with metastatic adenocarcinoma of lung origin. Molecular profiling studies are performed, revealing EGFR Exon 19 deletion. h. Early October,: Patient begins palliative erlotinib after some insurance delays. i. CT PET scan performed on February 14, 2018: Interval positive response to therapy. Significant interval reexpansion of left upper lobe with some minimum consolidation in the lingula. FDG uptake in the consolidated left upper lobe now has a max SUV of 4.7, previously 13.4. Interval resolution of the FDG avid supraclavicular adenopathy with no new sites of disease. There is a small left- sided pleural effusion and a small pericardial effusion, which are new without FDG uptake. There are stable bullae in the left lower lobe without significant FDG uptake. Treatment Treatment ongoing palliative erlotinib therapy HPI HPI Mrs. Ariana Ross, is a very pleasant 57 year old woman who has Metastatic lung adenocarcinoma, EGFR Exon 19 mutation,Dx:10/2017 ongoing therapy with palliative Erlotinib therapy 150 mg p.o. daily. patient is seen today for her acneiform rash of the skin. she reports being in her usual state of health. with no complains. Denies any N/V/, occasional diarrhea uses Imodium PRN. No cardiac type chest pain, Only uses Oxygen at night currently. continues to be on the go and keep active. No bleeding, bruising, night sweats, no fevers, no sore throat, minimal cough. some fatigue, appetite ok. Social/Occupational History Social History: Social History This is a 57 Yr old White female, she is S Single and has [] Children Hx Smoking: No Smoking Status: Never Smoker Allergies & Medications Allergies: Coded Allergies: No Known Drug Allergies (Verified , 12/26/17) Home Meds Active Scripts Minocycline HCl (Minocin) 75 Mg Capsule, 75 MG TOP 1-2XD for 30 Days, BOTTLE Prov:GINA RIGGS-C, ONC 04/01/18 Erlotinib (TARCEVA) 150 Mg Tab, 150 MG PO DAILY, #30 TAB 11 Refills Prov:MICHELLE LINK GYM MANAGER-BC, ONC 10/21/17 Reported Medications Triamcinolone Acetonide 0.1% Cr 15 Gm Tube (TRIAMCINOLONE ACETONIDE 0.1% CREAM) 15 Gm Cream..g., 15 GM TP BID, TUBE 11/18/17 Acetaminophen (Tylenol) 325 Mg Tab, 1 - 2 TAB PO ONCE, 0 Refills 03/28/11 Discontinued Reported Medications Cephalexin 500 Mg Tab (KEFLEX 500 MG TAB) 500 Mg Tablet, 500 MG PO Q12H, #20 TAB 12/10/17 Clindamycin Phosphate (Clindamycin Phosphate) 1 % Solution, TOP BID 11/26/17 Acetaminophen/Hydrocodone (Lortab 5/500) 5 Mg/500 Mg Tab, 1 TAB PO Q6H Y, #15 0 Refills 03/28/11 Discontinued Scripts Hydroxyzine Hcl (HYDROXYZINE HCL) 25 Mg Tablet, 25 MG PO QID Y for ITCHING, #20 TAB Prov:LUISA ANGLIN GYM MANAGER 12/26/17 Prochlorperazine Maleate (Compazine) 10 Mg Tablet, 10 MG PO Q6H, #30 TAB 3 Refills Prov:MICHELLE LINK GYM MANAGER-BC, ONC 10/21/17 Lorazepam (ATIVAN) 0.5 Mg Tablet, 0.5 MG PO Q4-6H Y for NAUSEA for 30 Days, #30 TAB 1 Refill Prov:MICHELLE LINK GYM MANAGER-BC, ONC 10/21/17 Review of Systems Constitution: Denies Appetite/Weight Change, Denies Fever/Chills/Sweating, Denies Recent Infection, Denies Other Respiratory: Cough, No Expectoration, No Hemoptysis, No Shortness of Breath, No OTHER Cardiovascular: No Chest Pain, No Orthopnea, No Edema, No Palpitations, No OTHER Gastrointestinal: No Nausea, No Vomitting, Diarrehea, No Constipation, No Heart Burn, No Swallowing Difficulties, No Abdominal Pain, No Other Gentiourinary: Hematuria Musculoskeletal: No Muscle Pain, No Joint Pain, No Bone Pain, No Other Hematological: No Bleeding, No Weakness, No Enlarged Lyph Nodes, No Bruising, Fatigue, No Other Skin: Skin Rash Psychiatric: No Anxiety, No Depression, No Other Vital Signs Vital Signs Temperature: 98.0 Pulse: 59 BP Systolic: 139 BP Diastolic: 79 Respiratory Rate: 16 O2 SAT: 93 O2 Delivery: Height (feet) Height (inches) 65.50 Weight lb: 245 Weight oz: Weight Kg (Justice): Pain: 0 Physical Exam General: Looks Stable, Well Developed, Well Nourished (In no acute distres) HEENT: HEAD:Atraumatic, No EYES: Conjuctivitis, No EYES: Icterus, No MOUTH: Mucocitis, No MOUTH: Oral Thrush, No SINUS: Tenderness to Palpation, No Other Neck: Supple Lungs: Percussion Bilaterally (Diminshed at base) Heart: Regular Rate and Rhythm, No Gallops, No Murmurs, No Clicks, No Rubs, No Other Abdomen: Soft and Nontender, No Hepatosplenomegaly, No Masses, No Other Extremities: Cyanosis Lymphatics: No Peripheral Lymphadenopathy, No Other Psychiatric: Mood appears normal, Affect appears normal, Other Skin: Skin Rashes (Generalized), No Bruising, No Purpura, No Moist Desquamation , No Dry Desquamation, No Errythema, No Mild Errythema, No Moderate Errythema, No Severe Errythema, No Induration, No Other Breast: No No Masses, No No Nipple Discharge, No No Skin Changes, No Other Assessment and Plan Assessment and Plan Mrs. Ariana Ross, is a very pleasant 57 year old woman who has Metastatic lung adenocarcinoma, EGFR Exon 19 mutation,Dx:10/2017 ongoing therapy with palliative erlotinib therapy 150 mg p.o. daily. patient is seen today for her acneiform rash of the skin. she reports being in her usual state of health. with no complains. ASSESSMENT 1. Metastatic lung adenocarcinoma, EGFR Exon 19 mutation, ongoing therapy with palliative erlotinib therapy. tolerating very well, with significant improvement revealed by CT PET scan performed on February 14, 2018: Interval positive response to therapy. Significant interval reexpansion of left upper lobe with some minimum consolidation in the lingula. FDG uptake in the consolidated left upper lobe now has a max SUV of 4.7, previously 13.4. Interval resolution of the FDG avid supraclavicular adenopathy with no new sites of disease. There is a small left-sided pleural effusion and a small pericardial effusion, which are new without FDG uptake. There are stable bullae in the left lower lobe without significant FDG uptake. 2. Skin rash acneiform type. all over her body skin rash, ongoing since initiated Erlotinib in october 2017. on physical exam there is pronounced skin rash on back, chest, hands and face. in the setting of antineoplastic therapy. expected side effects of Erlotinib given length of symptom presentation. we will add the following to treatment; Triamcinolone 0.1%/chai cream 1:1 ratio compound 480oz. apply to affected skin BID; tetracycline 500mg Po BID # 28 pills; continue taking Hydroxyzine 25mg Po PRN. 3. Poor exercise habits. Patient encouraged to walk, and exercise at least 150minutes per week. we will get physical therapy involved. 4. Obese. BMI>33. Nutrition consult, patient is encourage to eat a balanced diet with fruits and vegetables along with walking every day 5. History of sleep apnea, uses oxygen at night only. PLAN -Continue Erlotinib and f/u per protocol - Triamcinolone 0.1%/chai cream 1:1 ratio compound 480oz. apply to affected skin BID; tetracycline 500mg Po BID # 28 pills; continue taking Hydroxyzine 25mg Po PRN. - patient may use Dial original or any bare soap, free of alcohol, non scented - PT Eval & treat - Nutrition consult - Follow up in 3-7 days for treatment response. patient and Rn to call. - Follow up with Dr. Dnun with repeat CT PET by 05/22/2018 - Patient to call cancer center with any issues or concerns - Patient to use sunscreen and wear long sleeves when outdoors. Education, patient instructed to go to ER immediately and or call Clinic if any Shortness of Breath, Temp >/=100.4, fevers, chills, cardiac type chest pain, bleeding, excessive bruising, headaches, blurry vision, dizziness, abdominal pain, difficulty swallowing, and pain unrelieved by medication. TIME SPENT: 30 minutes 25 > minutes includes but not limited to discussion, counselling and co-ordination~ of care. Discussion with other health care providers, record review, review of lab work, diagnostic tests. Plan discussed extensively with patient. All the questions answered today. Thank you for the opportunity to be involved in the care of Ariana Ross. Billing Level: Return visit 4 GINA RIGGS, ONC Apr 01, 2018 12:13
--- NOTE | 2018-04-02 17:07 | Medical Nutrition Therapy ---
Nutrition Anthropometrics Height (Inches): 66.5 Height (Calculated Centimeters: 166.3700 Weight (Pounds): 238 (patient states she has gained a few pounds recently) Hx Weight Loss: Yes (patient states she has lost ~50lbs in 7 months (since Sep 2017)) Nutritional Education Nutrition Education Topic: Other (Nutrition and Cancer ) Learning Readiness: Interested Teaching Methods: Discussion, Handout Response to Teaching: Verbalize understanding Teaching Recipient: Patient Nutrition Counseling: Provided handout on Eating during and after cancer. Patient indicated that she was having issues with diarrhea, metallic taste and poor appetite. I reviewed information on each issue and encouraged her to review and make a few changes if needed. Recommended patient make a few changed to diet is she is experiencing diarrhea such as low fiber foods and increase fluids Nutrition Monitoring & Eval Nutrition Goals: Eat 90-100% Meal, Drink > 2 liters/day Nutritional Goals Comment: Stabilize weight loss, reduce diarrhea. Nutrition Monitoring: I will monitor nutrition impact symptoms and provide additional education and recommendations as needed RD Patient Assessment Time: [address] Assessment Type: RD Education Nutritional Comment: Encouraged patient to call if she had any questions about the information we reveiwed or experiencing other nutrition impact symptoms. DANNA RENE RDN, IDANIA Apr 02, 2018 17:07
[~2018-04-09] VITALS: Ht 168.9 cm; Wt 108.0 kg
[~2018-04-09 13:12] MED LIST changes: +LIDOCAINE/SOD BICARB 8.4% SYR ID PRN; +MINO75CA2 TOP; -PNEUMOC 13-VAL CONJ-DIP CRM/PF 0.5 ML SYR IM ONLY ONE; -PNEUMOCOC VAC POLY 25MCG/0.5ML IM ONLY ONE; +WATER FOR INJ,STERILE 20 ML IVP PRN; -WATER STERILE 10 ML VIAL IVP PRN
[2018-04-09 13:46] VITALS: BP 145/85
[2018-04-09] MEDS: HEPARIN FLSH (PORT) 500 UN/5ML IVP PRN (13:49)
== END 2018-04-30 ==
LOC: SPU 13:12
PROVIDERS: ATTEND Surgery
DX: C34.92 Malignant neoplasm of unspecified part of left bronchus or lung (principal); R53.83 Other fatigue
CPT/HCPCS: 96523; 99212; J1642

== ENCOUNTER → 2018-05-08 | Outpatient (CLI) | payer BC ==
[~2018-05-08] MED LIST changes: -ALTEPLASE RECOMB 2 MG VIAL IVP PRN; -DEXTROSE 5%(*) 100 ML BAG 100 ML IVPB PRN; -LIDOCAINE/SOD BICARB 8.4% SYR ID PRN; -NS(*) 0.9% 100 ML BAG 100 ML IVPB PRN; -NS(*) 0.9% 500 ML BAG 500 ML IV PRN; -WATER FOR INJ,STERILE 20 ML IVP PRN
== END ==
LOC: SPU 08:09
PROVIDERS: ATTEND Physician Assistant
DX: Z13.220 Encounter for screening for lipoid disorders (principal); R73.01 Impaired fasting glucose; I10 Essential (primary) hypertension

== ENCOUNTER → 2018-05-22 | Outpatient (CLI) | payer BC ==
--- NOTE | 2018-05-22 16:58 | RADIOLOGY IMAGING REPORT ---
FACILITY: [facility] PATIENT NAME: JOE MAZARIEGOS : [id number] MR: [id number] V: [id number] EXAM DATE: ORDERING PHYSICIAN: MIKIE WARREN TECHNOLOGIST: Cara Banks PROCEDURE:BILATERAL DIGITAL SCREENING MAMMOGRAM WITH CAD ASSISTED INTERPRETATION & 3D TOMOSYNTHESIS COMPARISON:None. INDICATIONS:SCREENING FINDINGS: Small amount of fibroglandular tissue is seen throughout the breasts. Just medial to midline on the Right CC view and in the upper portion of the Right breast on the Right MLO view in the middle 1/3 is an ovoid nodular density for which Right breast Ultrasound is recommended. There are at least 2 nodular densities seen in the lateral portion of the Left breast on the Left CC view in the middle 1/3 which appear to be in the upper portion of the Left breast on the Left MLO view for which Spot compression view and Left breast Ultrasound recommended. Spot compression view also recommended for the focal dense tissue in the lateral portion of the Left breast on the Left CC view which appears asymmetric with the Right breast. DIAGNOSTIC CATEGORY 0--INCOMPLETE: NEED ADDITIONAL IMAGING EVALUATION. RECOMMENDATIONS: ADDITIONAL MAMMOGRAPHIC VIEWS REQUIRED: LEFT BREAST. ULTRASOUND: BILATERAL BREASTS. IMPRESSION: BIRADS 0: Incomplete. Additional views of the Left breast and Bilateral breast Ultrasound recommended as described above. Dictated by: Jacinta Bateman M.D. on 05/22/2018 at 15:19 Transcribed by: GREGOR on 05/22/2018 at 15:35 Approved by: Jacinta Bateman M.D. on 05/22/2018 at 16:57 [facility]
== END ==
LOC: MAMO 00:29
PROVIDERS: ATTEND Physician Assistant
DX: R92.2 Inconclusive mammogram (principal)
CPT/HCPCS: 77063; 77067

== ENCOUNTER → 2018-06-09 | Outpatient (CLI) | payer BC ==
[~2018-06-09] MED LIST changes: +LISI20TA29 PO
--- NOTE | 2018-06-10 08:43 | RADIOLOGY IMAGING REPORT ---
FACILITY: [facility] PATIENT NAME: JOE MAZARIEGOS : [id number] MR: [id number] V: [id number] EXAM DATE: [id number] ORDERING PHYSICIAN: MIKIE WARREN TECHNOLOGIST: Cara Bansk PROCEDURE:LEFT DIGITAL DIAGNOSTIC MAMMOGRAM WITH CAD ASSISTED INTERPRETATION & 3D TOMOSYNTHESIS COMPARISON:Prior mammograms 05/22/18. INDICATIONS:FURTHER EVAL FINDINGS: The patient returns for mediolateral view of the Left breast and Spot compression views in the Left CC projection with 3D Tomosynthesis. The focal area of increased density in the upper outer quadrant of the Left breast appears compressible and apparently represented fibroglandular tissue. The 2 nodular densities in the upper outer quadrant of the Left breast appear to persist. No sonographic correlate could be demonstrated. A 6 month follow-up bilateral mammogram is recommended in addition to a 6 month follow-up Left breast Ultrasound as discussed in Today's bilateral breast Ultrasound report. DIAGNOSTIC CATEGORY 3--PROBABLY BENIGN FINDING. RECOMMENDATIONS: SIX MONTH FOLLOW-UP DIAGNOSTIC MAMMOGRAM: BILATERAL BREASTS. SIX MONTH FOLLOW-UP ULTRASOUND: LEFT BREAST. IMPRESSION: BIRADS 3: Probably benign finding. A 6 month follow-up bilateral mammogram and 6 month follow-up Left breast Ultrasound recommended. Please see Today's bilateral breast Ultrasound report. Dictated by: Jacinta Bateman M.D. on 06/09/2018 at 16:22 Transcribed by: GREGOR on 06/10/2018 at 8:37 Approved by: Jacinta Bateman M.D. on 06/10/2018 at 8:42 [facility]
--- NOTE | 2018-06-11 08:22 | RADIOLOGY IMAGING REPORT ---
FACILITY: [facility] [place] PATIENT NAME: VANDANA MAZARIEGOS : [id number] MR: [id number] V: [id number] EXAM DATE: [id number] ORDERING PHYSICIAN: MIKIE WARREN TECHNOLOGIST: Vandana Barrera RDMS(ABD,OBGYN,BR),RVT PROCEDURE:US BILATERAL BREAST COMPARISON:Today's diagnostic Left mammogram and the bilateral screening mammogram of 05/22/18. INDICATIONS:FURTHER EVAL FINDINGS: There is a 5.5mm cyst in the 9 o'clock position of the Right breast 4cm from the nipple which would not account for the recent mammographic finding. The entire Right breast was imaged although no sonographic correlate was demonstrated. In the 3 o'clock position of the Left breast there is a 5.2mm well circumscribed hypoechoic nodule 6cm from the nipple. This also does not likely account for the recent mammographic finding therefore a 6 month follow-up bilateral mammogram is recommended for further evaluation. A 6 month follow-up Left breast Ultrasound is also recommended to evaluate the hypoechoic nodule in the 3 o'clock position of the Left breast. DIAGNOSTIC CATEGORY 3--PROBABLY BENIGN FINDING. RECOMMENDATIONS: SIX MONTH FOLLOW-UP DIAGNOSTIC MAMMOGRAM: BILATERAL BREASTS. SIX MONTH FOLLOW-UP ULTRASOUND: LEFT BREAST. IMPRESSION: BIRADS 3: Probably benign finding. A 6 month follow-up bilateral diagnostic mammogram as described above and a 6 month follow-up Left breast Ultrasound. Dictated by: Jacinta Bateman M.D. on 06/09/2018 at 16:21 Transcribed by: GREGOR on 06/10/2018 at 8:46 Approved by: Jacinta Bateman M.D. on 06/11/2018 at 8:21 [facility]
== END ==
LOC: MAMO 00:51
PROVIDERS: ATTEND Physician Assistant
DX: N60.01 Solitary cyst of right breast (principal); N63.21 Unspecified lump in the left breast, upper outer quadrant
CPT/HCPCS: 77061; 77065

== ENCOUNTER → 2018-07-01 | Outpatient (RCR) | payer BC ==
--- NOTE | 2018-04-03 14:38 | PT INITIAL EVALUATION ---
MEDICAL DIAGNOSIS: Lung Cancer TREATMENT DIAGNOSIS: Lung Cancer, Generalized Weakness, Deconditioning DATE OF ONSET: 04/02/18 SUBJECTIVE: Vandana Hassan" is a 57 year old female presenting to physical therapy for return to physical activity following diagnosis of lung cancer. Pt was first diagnosed in September 2017 with lung cancer and started on oral chemotherapy medication, Tarceva. Since starting chemo treatment pt reports decreased activity and that she is no longer working. Other than fatigue side- effects include rash and diarrhea which are being medically managed. 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 At this time pt report that she becomes short of breath with any exertion, but that this is improving with treatment. Pt previously walked regularly and would like to return to physical activity. REHAB PROBLEM LIST: Decreased Strength Decreased Endurance Decreased Function Decreased ADL's Decreased Mobility Decreased Gait PREVIOUS MEDICAL HISTORY: See EMR OCCUPATION: Previously worked as a paraprofessional at [employer] OBJECTIVE: Posture: Posture significant for B rounded and forward shoulders with increased thoracic kyphosis. Strength: LE MMT: Hip: flexion: B 4/5, Ext: L 3+/5, R 4/5, abd: B 4/5, add: 3+/5 , 4-/5. Knee: ext: B 4/5, flex: 4-/5, 4+/5,. Ankles: PF: L 4-/5, 4/5, DF: B 5/ 5. Gait: 6 Minute Walk: 5.5 laps= 940ft= 286.5meters: @3 minutes oxygen sat at 82% at 6min oxygen sat at 92%, 1 min recovery oxygen sat at 96% with HR at 71 Other Objective Findings: Resting Vitals: Oxygen: 96% sat, HR: 62bpm, BP: 122/ 80. Pt is on 1 L of oxygen at night. ASSESSMENT: Vandana shows signs and symptoms consistent with generalized weakness and deconditioning secondary to diagnosis of lung cancer. Physical therapy is indicated for this patient to address the above listed deficits to improve functional mobility with ADL's, occupational, and recreational activity. Short Term Goals In 2 weeks pt will increase B LE MMT to 4/5 or greater for improved function with ADL's. In 4 weeks pt will increase 6 minute walk test to 8 laps for improved function with ADL's and community ambulation while maintaining oxygen levels above 90%. In 4 weeks pt will be independent with gym/home exercise program for independent progression of strength and endurance. Patient's Goals Work towards independent walking and home/gym exercise program PLAN: Patient to be seen for Manual Therapy/STM/MET Strengthening/condition Ice/Heat Range of Motion Spinal Stabilization Ultrasound Stretching Iontophoresis Neuromuscular Re-ed Closed Chain Program Electrical Stim Posture/Body mechanics Gait Trg/Balance Trg Biofeedback Home Exercise Program Mech./Manual Traction Therapeutic Activities Pelvic Floor 3x/Week for 6 Weeks If you have any questions, comments, or concerns about this report or plan, please contact me at . Thank you, Lexi Herrera, PT, DPT, CLT MTDD
--- NOTE | 2018-06-11 12:44 | PT PLAN OF CARE ---
Physician: ODILIA Jones Patient is being seen: 2-3x/Week Therapist: Lexi Herrera, PT, DPT, CLT Medical Diagnosis: Lung Cancer Treatment Diagnosis: Lung Cancer, Generalized Weakness, Deconditioning Date of Onset: 04/02/18 Date of Initial Evaluation: 04/02/18 Date patient was last seen: 06/11/18 Number of treatments: 11 Number of cancellations/No shows: 5 INTERVENTIONS: Manual Therapy/STM/MET Strengthening/condition Ice/Heat Range of Motion Spinal Stabilization Ultrasound Stretching Iontophoresis Neuromuscular Re-ed Closed Chain Program Electrical Stim Posture/Body mechanics Gait Trg/Balance Trg Biofeedback Home Exercise Program Mech./Manual Traction Therapeutic Activities Pelvic Floor GOALS: In 2 weeks pt will increase B LE MMT to 4/5 or greater for improved function with ADL's. MET In 4 weeks pt will increase 6 minute walk test to 8 laps for improved function with ADL's and community ambulation while maintaining oxygen levels above 90%. MET In 4 weeks pt will be independent with gym/home exercise program for independent progression of strength and endurance. PATIENT'S GOAL: Work towards independent walking and home/gym exercise program Status of Patient's Goals: 2/3 MET Patient Compliance: Good Prognosis: Good Reasons for continuing therapy: Niru shows good improvement with functional endurance and mobility with community ambulation. Strength shows slight gains specifically in the hip and ankle. Pt shows slow improvements in cardiac response to aerobic exercises, but requires continued monitoring for occurrence of arrhythmias with increased resistance. Further PT to focus on continued improvements in strength as well as progression to independent exercise such as stair climbing as previously utilized for recreational activities. Posture: Posture significant for B rounded and forward shoulders with increased thoracic kyphosis. Strength: LE MMT: Hip: flexion: B 4/5, Ext: B 4/5, abd: B 4/5, add: B 4/5. Knee: ext: L 4+/5, R 5/5, flex: B 4/5. Ankles: PF: B 4/5, DF: B 5/5. Gait: 6 Minute Walk: 7 [id number] rmaa=680.8 meters If you have any questions or concerns, please feel free to contact me at [phone]. Thank you, Lexi Herrera, PT, DPT, CLT MTDD
== END ==
LOC: PT 04-02 14:08
PROVIDERS: ATTEND Nurse Practitioner Family
DX: C34.90 Malignant neoplasm of unspecified part of unspecified bronchus or lung (principal); M62.81 Muscle weakness (generalized)
CPT/HCPCS: 97161

== ENCOUNTER 2018-07-30 08:30 | Outpatient (RCR) | payer BC ==
[2018-05-08 08:38] VITALS: BP 136/71
[2018-05-08] MEDS: HEPARIN FLSH (PORT) 500 UN/5ML IVP PRN (08:38)
[2018-05-08 09:00] LABS: LDL CHOLESTEROL 101 mg/dl
[2018-06-04 08:07] VITALS: BP 164/61
--- NOTE | 2018-06-04 10:22 | ONCOLOGY FOLLOW UP NOTE ---
EVENT DATE: June 04, 2018 REASON FOR FOLLOWUP Metastatic lung adenocarcinoma, EGFR Exon 19 mutation, ongoing therapy with palliative erlotinib. INTERIM HISTORY Ms. Benito returns to clinic for a followup visit today. She is accompanied by loved ones. Symptomatically, she seems to be doing remarkably well. She remains on palliative erlotinib. She has been working with physical therapy and she feels that her overall strength and endurance has improved somewhat. She denies fever. She reports no pain today. She does report some fatigue with more significant exertion recently, notably when she had gone fishing/hiking. She reports no shortness of breath currently and she denies productive cough. Her appetite has been good. She does occasionally have loose stools but this is easily controlled with Imodium AD at home. She reports no new urinary symptoms. She has had some muscle cramps but she admits that she is not staying as well hydrated as she could. In general, her mood has been good, although on some days she does report feeling somewhat "blue". In general, she is quite pleased with how things are going with her ongoing treatment. She has undergone a CT/PET scan and she is here to review the results. REVIEW OF SYSTEMS Otherwise negative and all systems were reviewed. ONCOLOGY HISTORY 1. Metastatic lung adenocarcinoma, EGFR Exon 19 mutation. a. June 2017, patient presents with wheezing, cough and shortness of breath. b. CT angiogram at that time shows no evidence of PE, but there was consolidation of left upper lobe. c. Followup CT scan on August 02, 2017 shows worsening consolidation of the left upper lobe, and patient is sent for bronchoscopy. d. August 08, 2017: Bronchoscopy is performed. Pathology reveals evidence of malignant cells, consistent with adenocarcinoma of lung origin. e. August 21, 2017: Patient undergoes CT PET scan, which reveals hypermetabolic consolidation of left lower lobe, and a 3.5 cm left lower lobe bulla with borderline hypermetabolism and mild hypermetabolic uptake in the subcarinal area. There was also bilateral supraclavicular and base of neck lymph nodes. f. September 11, 2017, MRI brain: No evidence of MANAGER INSTRUMENTATION metastatic disease. g. September 20, 2017, patient undergoes ultrasound-guided left thoracentesis. Pathology again revealed malignant cells, compatible with metastatic adenocarcinoma of lung origin. Molecular profiling studies are performed, revealing EGFR Exon 19 deletion. h. Early October,: Patient begins palliative erlotinib after some insurance delays. i. CT PET scan performed on February 14, 2018: Interval positive response to therapy. Significant interval reexpansion of left upper lobe with some minimum consolidation in the lingula. FDG uptake in the consolidated left upper lobe now has a max SUV of 4.7, previously 13.4. Interval resolution of the FDG avid supraclavicular adenopathy with no new sites of disease. There is a small left- sided pleural effusion and a small pericardial effusion, which are new without FDG uptake. There are stable bullae in the left lower lobe without significant FDG uptake. j. May 21, 2018: CT/PET scan reveals stable to improved findings with a mass-like left upper lobe opacity that is no longer significantly FDG avid, although there is some mild warm activity within it. There is a trace left pleural effusion that is stable and not significantly FDG avid. There is no evidence of hypermetabolic metastatic disease. CURRENT MEDICATIONS 1. Minocycline. 2. Tarceva. 3. Triamcinolone cream as needed. 4. Tylenol as needed. 5. Vitamin D 3. 6. Garlic. 7. Newly added Lisinopril. ALLERGIES No known drug allergies. SOCIAL HISTORY Patient is a nonsmoker. There is no history of alcohol abuse or illicit drug use. FAMILY HISTORY Noncontributory. VITAL SIGNS Temperature is 97.5, blood pressure 141/68, heart rate 57, respirations 16, oxygen saturation is 94% on room air. Weight is 108. PHYSICAL EXAMINATION GENERAL: Patient is alert and oriented x3, in no apparent distress, sitting in the exam room chair. She is in good spirits and quite interactive. HEENT: Exam reveals anicteric sclerae. NEUROLOGIC: Exam is grossly nonfocal and her gait is normal. EXTREMITIES: Exam reveals no edema, clubbing or cyanosis. There is no erythema or tenderness. LABORATORY STUDIES Reviewed per the [facility] record. IMAGING Please see oncology history. ASSESSMENT AND PLAN Metastatic lung adenocarcinoma, EGFR mutation. Ms. Benito continues to do remarkably well with palliative erlotinib. Over time, her general quality of life has improved. She is now working with physical therapy and this has been remarkably helpful. She has no concerning signs or symptoms today. We spent time reviewing the results of her recent followup CT/PET scan. This study shows stable to improved findings. She was very happy to hear this. She did have some trouble getting her CT/PET scan approved and we will need to address this for her next scan, which likely will take place in August. The patient and her loved ones had several additional questions for me today and I believe I answered all of their questions to their satisfaction. Remarkably, the patient is considering a trip to [place] and she had some questions about oxygen use during the trip as well. I spent a total of 30 minutes of time face to face with the patient and her visitors today. Twenty-five minutes of this was spent in direct counseling and coordination of care. ROSALIND
[2018-06-10] MEDS: LIDOCAINE/SOD BICARB 8.4% SYR ID PRN (10:06)
[2018-07-08] MEDS: LIDOCAINE/SOD BICARB 8.4% SYR ID PRN (09:47)
[2018-07-08] MEDS: HEPARIN FLSH (PORT) 500 UN/5ML IVP PRN (09:49)
[2018-07-28 08:52] VITALS: BP 137/70
[2018-07-28 09:17] LABS: PLATELET COUNT, AUTOMATED 260 K/uL (150-450)
[~2018-07-30 08:30] MED LIST changes: +ALTEPLASE RECOMB 2 MG VIAL IVP PRN; +DEXTROSE 5%(*) 100 ML BAG 100 ML IVPB PRN; +HEPARIN FLSH (PORT) 500 UN/5ML IVP PRN; +LIDOCAINE/SOD BICARB 8.4% SYR ID PRN; +NS(*) 0.9% 100 ML BAG 100 ML IVPB PRN; +NS(*) 0.9% 500 ML BAG 500 ML IV PRN; +WATER FOR INJ,STERILE 20 ML IVP PRN
[2018-07-30 08:32] VITALS: BP 122/68
--- NOTE | 2018-07-30 14:25 | ONCOLOGY FOLLOW UP NOTE ---
EVENT DATE: July 30, 2018 REASON FOR FOLLOWUP Metastatic lung adenocarcinoma, EGFR exon 19 mutation, ongoing therapy with palliative erlotinib. INTERIM HISTORY Ms. Benito returns to clinic for a followup visit today. She reports that in general things have been going pretty well. She reports no new pain. She denies shortness of breath and productive cough. She has had no problems controlling skin rash or diarrhea. Nausea has been minimal. She spent the last few days helping family members move, and this was somewhat of a challenge. She is more fatigued today as a result. She continues on palliative Tarceva, which she takes religiously at home. REVIEW OF SYSTEMS Otherwise negative, and all systems were reviewed. ONCOLOGY HISTORY Metastatic lung adenocarcinoma, EGFR exon 19 mutation. a. June 2017, patient presents with wheezing, cough, and shortness of breath. b. CT angiogram at that time shows no evidence of PE, but there was consolidation of left upper lobe. c. Followup CT scan on August 02, 2017, shows worsening consolidation of the left upper lobe, and patient is sent for bronchoscopy. d. August 08, 2017: Bronchoscopy is performed. Pathology reveals evidence of malignant cells consistent with adenocarcinoma of lung origin. e. August 21, 2017: Patient undergoes CT PET scan, which reveals hypermetabolic consolidation of left lower lobe, and a 3.5 cm left lower lobe bulla with borderline hypermetabolism and mild hypermetabolic uptake in the subcarinal area. There was also bilateral supraclavicular and base of neck lymph nodes. f. 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 g. September 20, 2017, patient undergoes ultrasound-guided left thoracentesis. Pathology again revealed malignant cells compatible with metastatic adenocarcinoma of lung origin. Molecular profiling studies are performed revealing EGFR exon 19 deletion. h. Early October,: Patient begins palliative erlotinib after some insurance delays. i. CT PET scan performed on February 14, 2018: Interval positive response to therapy. Significant interval reexpansion of left upper lobe with some minimum consolidation in the lingula. FDG uptake in the consolidated left upper lobe now has a max SUV of 4.7, previously 13.4. Interval resolution of the FDG-avid supraclavicular adenopathy with no new sites of disease. There is a small, left-sided pleural effusion and a small pericardial effusion which are new without FDG uptake. There are stable bullae in the left lower lobe without significant FDG uptake. j. May 21, 2018: CT PET scan reveals stable to improved findings with a mass-like left upper lobe opacity that is no longer significantly FDG avid, although there is some mild warm activity within it. There is a trace left pleural effusion that is stable and not significantly FDG avid. There is no evidence of hypermetabolic metastatic disease. CURRENT MEDICATIONS 1. Minocycline. 2. Tarceva. 3. Triamcinolone cream as needed. 4. Tylenol as needed. 5. Vitamin D3. 6. Garlic. 7. Newly added Lisinopril. ALLERGIES No known drug allergies. SOCIAL HISTORY Patient is a nonsmoker. There is no history of alcohol abuse or illicit drug use. FAMILY HISTORY Noncontributory. VITAL SIGNS Patient is afebrile. Vital signs are stable. PHYSICAL EXAMINATION GENERAL: Patient is alert and oriented times three, no apparent distress, sitting in the exam room chair. She is in good spirits, and she appears healthy. HEENT: Anicteric sclerae. NEUROLOGIC: Grossly nonfocal, and her gait is normal. EXTREMITIES: No edema, clubbing, or cyanosis. There is no erythema or tenderness to palpation. LABORATORY STUDIES AND IMAGING Reviewed per the [facility] record. ASSESSMENT AND PLAN Metastatic lung adenocarcinoma, EGFR mutation. Ms. Benito continues on palliative Tarceva, and she is tolerating it remarkably well. She has no signs or symptoms to suggest progression of her known metastatic lung cancer. We reviewed her laboratory studies today, and these are unremarkable. We discussed plans moving forward for reimaging. Her last CT PET scan was performed in May, and I do think it would be reasonable to recheck a CT PET scan toward the end of August. She favors this as well. As such, the CT PET scan will be ordered, and I will plan to see her back at the end of August or early September to follow up on the scan results. ROSALIND
== END 2018-08-05 ==
LOC: ONC 08:30
PROVIDERS: ATTEND Internal Medicine Medical Oncology
DX: C34.12 Malignant neoplasm of upper lobe, left bronchus or lung (principal); C77.0 Secondary and unspecified malignant neoplasm of lymph nodes of head, face and neck
CPT/HCPCS: 36415; 83036; 85025; 96374; 96523; 99212; J1642; J2997; 82040; 82247; 82310; 82374; 82435; 82465; 82565; 82947; 83718; 84075; 84132; 84155; 84295; 84450; 84460; 84478; 84520

== ENCOUNTER 2018-08-11 06:55 | Outpatient (RCR) | payer BC | END 2018-08-11 16:42 | disposition home or self-care (01) | LOC: ONC 06:55 | PROVIDERS: ATTEND Internal Medicine Medical Oncology | DX: C34.12 Malignant neoplasm of upper lobe, left bronchus or lung (principal); C77.0 Secondary and unspecified malignant neoplasm of lymph nodes of head, face and neck ==

== ENCOUNTER 2018-09-04 09:00 | Outpatient (RCR) | payer BC ==
--- NOTE | 2018-07-17 13:08 | PT PLAN OF CARE ---
Physician: Merlene Carmen MD Patient is being seen: 2x/week Therapist: Lexi Herrera, PT, DPT, CLT Medical Diagnosis: Lung Cancer Treatment Diagnosis: Lung Cancer, Generalized Weakness, Deconditioning Date of Onset: 04/02/18 Date of Initial Evaluation: 04/02/18 Date patient was last seen: 07/17/18 Number of treatments: 19 Number of cancellations/No shows: 7 INTERVENTIONS: Manual Therapy/STM/MET Strengthening/condition Ice/Heat Range of Motion Spinal Stabilization Ultrasound Stretching Iontophoresis Neuromuscular Re-ed Closed Chain Program Electrical Stim Posture/Body mechanics Gait Trg/Balance Trg Biofeedback Home Exercise Program Mech./Manual Traction Therapeutic Activities Pelvic Floor GOALS: In 2 weeks pt will increase B LE MMT to 4/5 or greater for improved function with ADL's. MET In 4 weeks pt will increase 6 minute walk test to 8 laps for improved function with ADL's and community ambulation while maintaining oxygen levels above 90%. MET In 4 weeks pt will be independent with gym/home exercise program for independent progression of strength and endurance. PATIENT'S GOAL: Work towards independent walking and home/gym exercise program Status of Patient's Goals: 2/3 MET Patient Compliance: Good Prognosis: Good Reasons for continuing therapy: Niru continues to have difficulty with progression of aerobic exercise limited by cardiac function with drop in HR resulting in fatigue. However, with interval level strengthening pt shows good progression of exercise and strength with good maintenance of oxygen level with appropriate HR response. Further PT is indicated for this patient to progress to recreational activities and independent exercise program to maintain functional status. Posture: Posture significant for B rounded and forward shoulders with increased thoracic kyphosis. Strength: LE MMT: Hip: flexion: L 4/5, R 5/5, Ext: B 5/5, abd: B 4/5, add: B 4/5. Knee: ext: L 4+/5, R 5/5, flex: B 4/5. Ankles: PF: B 5/5, DF: B 5/5. Gait: 6 Minute Walk: 7 lnth=[id number] gazr=311.4 meters If you have any questions or concerns, please feel free to contact me at [phone]. Thank you, Lexi Herrera, PT, DPT, CLT [facility]
[~2018-09-04 09:00] MED LIST changes: -ALTEPLASE RECOMB 2 MG VIAL IVP PRN; -DEXTROSE 5%(*) 100 ML BAG 100 ML IVPB PRN; -HEPARIN FLSH (PORT) 500 UN/5ML IVP PRN; -LIDOCAINE/SOD BICARB 8.4% SYR ID PRN; -NS(*) 0.9% 100 ML BAG 100 ML IVPB PRN; -NS(*) 0.9% 500 ML BAG 500 ML IV PRN; -WATER FOR INJ,STERILE 20 ML IVP PRN
--- NOTE | 2018-09-04 12:06 | PT PLAN OF CARE ---
Physician: ODILIA Jones Patient is being seen: 2x/week Therapist: Lexi Herrera, PT, DPT, CLT Medical Diagnosis: Lung Cancer Treatment Diagnosis: Lung Cancer, Generalized Weakness, Deconditioning Date of Onset: 04/02/18 Date of Initial Evaluation: 04/02/18 Date patient was last seen: 09/04/18 Number of treatments: 23 Number of cancellations/No shows: 7 INTERVENTIONS: Manual Therapy/STM/MET Strengthening/condition Ice/Heat Range of Motion Spinal Stabilization Ultrasound Stretching Iontophoresis Neuromuscular Re-ed Closed Chain Program Electrical Stim Posture/Body mechanics Gait Trg/Balance Trg Biofeedback Home Exercise Program Mech./Manual Traction Therapeutic Activities Pelvic Floor GOALS: In 2 weeks pt will increase B LE MMT to 4/5 or greater for improved function with ADL's. MET In 4 weeks pt will increase 6 minute walk test to 8 laps for improved function with ADL's and community ambulation while maintaining oxygen levels above 90%. MET In 4 weeks pt will be independent with gym/home exercise program for independent progression of strength and endurance. MET PATIENT'S GOAL: Work towards independent walking and home/gym exercise program Status of Patient's Goals: 3/3 MET Patient Compliance: Good Prognosis: Good Reasons for discharge from therapy: Vandana, "Niru," is to discharge from physical therapy at this time secondary to completion of 3/3 functional goals. At the time of discharge, Niru shows significant increase in endurance and strength with returned function in ADL's. Upon discharge, pt is to continue to maintain improvements and return to prior level of function with an independent gym exercise program as created by this PT. Niru is to seek further PT at a later time if progress is not maintained or if further treatment is indicated. Posture: Posture significant for B rounded and forward shoulders with increased thoracic kyphosis. Strength: LE MMT: Hip: flexion: L 4/5, R 5/5, Ext: B 5/5, abd: B 4/5, add: B 4/5. Knee: ext: L 4+/5, R 5/5, flex: B 4/5. Ankles: PF: B 5/5, DF: B 5/5. Gait: 6 Minute Walk: 7 avzb=[id number] jqhl=969.4 meters If you have any questions or concerns, please feel free to contact me at [phone]. Thank you, Lexi Herrera, PT, DPT, CLT MTDD
== END 2018-09-04 18:00 | disposition home or self-care (01) ==
LOC: PT 09:00
PROVIDERS: ATTEND Internal Medicine Hematology
DX: C34.90 Malignant neoplasm of unspecified part of unspecified bronchus or lung (principal); M62.81 Muscle weakness (generalized)

== ENCOUNTER 2018-10-28 09:27 | Outpatient (RCR) | payer BC ==
--- NOTE | 2018-08-22 11:25 | NUR ---
SW assisted pt with completion of Co-pay assistance re-enrollment. The [employer] Co-pay assistance program she is on automatically re-enrolls patients so she does not have to send in an additional application. However, the program does give a different ID and BIN. (Program phone number: [phone]). New ID: [id number] New BIN: [id number]
[2018-08-27 09:40] VITALS: BP 148/61
[2018-08-27] MEDS: LIDOCAINE/SOD BICARB 8.4% SYR ID PRN (09:53)
[2018-08-27] MEDS: HEPARIN FLSH (PORT) 500 UN/5ML IVP PRN (09:53)
--- NOTE | 2018-08-27 12:01 | ONCOLOGY FOLLOW UP NOTE ---
EVENT DATE: August 27, 2018 REASON FOR FOLLOWUP Metastatic lung adenocarcinoma, EGFR exon 19 mutation, ongoing therapy with palliative erlotinib. INTERIM HISTORY Ms. Benito returns to clinic for a followup visit today. She is accompanied by her mother. She reports that she has been feeling pretty well since our last visit. She reports no new pain. She denies shortness of breath and productive cough. Her appetite is good and her weight has been stable. She does report that she tends to get a bit of whitish build-up in her eyes that is a bit irritating. She has had no changes in her vision. She has undergone a followup CT PET scan and she is here to review the results. REVIEW OF SYSTEMS Otherwise negative and all systems were reviewed. ONCOLOGY HISTORY Metastatic lung adenocarcinoma, EGFR exon 19 mutation. a. June 2017, patient presents with wheezing, cough, and shortness of breath. b. CT angiogram at that time shows no evidence of PE, but there was consolidation of left upper lobe. c. Followup CT scan on August 02, 2017, shows worsening consolidation of the left upper lobe, and patient is sent for bronchoscopy. d. August 08, 2017: Bronchoscopy is performed. Pathology reveals evidence of malignant cells consistent with adenocarcinoma of lung origin. e. August 21, 2017: Patient undergoes CT PET scan, which reveals hypermetabolic consolidation of left lower lobe, and a 3.5 cm left lower lobe bulla with borderline hypermetabolism and mild hypermetabolic uptake in the subcarinal area. There was also bilateral supraclavicular and base of neck lymph nodes. f. 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 g. September 20, 2017, patient undergoes ultrasound-guided left thoracentesis. Pathology again revealed malignant cells compatible with metastatic adenocarcinoma of lung origin. Molecular profiling studies are performed revealing EGFR exon 19 deletion. h. Early October,: Patient begins palliative erlotinib after some insurance delays. i. CT PET scan performed on February 14, 2018: Interval positive response to therapy. Significant interval reexpansion of left upper lobe with some minimum consolidation in the lingula. FDG uptake in the consolidated left upper lobe now has a max SUV of 4.7, previously 13.4. Interval resolution of the FDG-avid supraclavicular adenopathy with no new sites of disease. There is a small, left-sided pleural effusion and a small pericardial effusion which are new without FDG uptake. There are stable bullae in the left lower lobe without significant FDG uptake. j. May 21, 2018: CT PET scan reveals stable to improved findings with a mass-like left upper lobe opacity that is no longer significantly FDG avid, although there is some mild warm activity within it. There is a trace left pleural effusion that is stable and not significantly FDG avid. There is no evidence of hypermetabolic metastatic disease. k. August 18, 2018: CT PET: Trace left pleural effusion smaller than prior and not FDG avid. Otherwise no change in comparison to May 21, 2018 scan. Mass-like lingular opacity is stable in size and not FDG avid. There is no evidence of hypermetabolic metastatic disease. CURRENT MEDICATIONS 1. Minocycline. 2. Tarceva. 3. Triamcinolone cream as needed. 4. Tylenol as needed. 5. Vitamin D3. 6. Garlic. 7. Newly added Lisinopril. ALLERGIES No known drug allergies. SOCIAL HISTORY Patient is a nonsmoker. There is no history of alcohol abuse or illicit drug use. FAMILY HISTORY Noncontributory. VITAL SIGNS Temperature 98.2, blood pressure 148/61, heart rate 62, respirations 16, oxygen saturation 93% on room air, weight 109.3 kg. PHYSICAL EXAMINATION GENERAL: Patient is alert and oriented x3, no apparent distress, sitting in the exam room chair. HEENT: Anicteric sclerae. Normal conjunctivae. NEUROLOGIC: Grossly nonfocal and her gait is normal. SKIN: No concerning rash or lesions. EXTREMITIES: No edema, clubbing, or cyanosis. There is no erythema or tenderness to palpation. LABORATORY STUDIES Reviewed per the [facility] record. IMAGING Please see Oncology History above. ASSESSMENT AND PLAN Metastatic lung adenocarcinoma, EGFR exon 19 mutation. I had a good visit with Vandana and her mother today. Symptomatically, she continues to do remarkably well. Toxicity from Tarceva has been minimal, mostly limited to her eyes and lashes. She has no concerning signs or symptoms to suggest progression of her lung cancer. We spend time today reviewing her followup CT PET scan results. The scan shows encouraging findings with ongoing evidence of response to Tarceva. The patient will continue on palliative Tarceva for the time-being and I have asked her to return in six weeks for a followup with Jade Gordon, nurse practitioner. All questions answered today. MTDD
[2018-09-19 10:34] LABS: PLATELET COUNT, AUTOMATED 273 K/uL (150-450)
[2018-10-01 09:29] VITALS: BP 33/52
[2018-10-01] MEDS: HEPARIN FLSH (PORT) 500 UN/5ML IVP PRN (09:39)
[2018-10-01] MEDS: LIDOCAINE/SOD BICARB 8.4% SYR ID PRN (09:40)
[2018-10-01 09:46] LABS: PLATELET COUNT, AUTOMATED 264 K/uL (150-450)
[2018-10-01 13:22] VITALS: BP 133/52
--- NOTE | 2018-10-06 04:15 | ONCOLOGY FOLLOW UP NOTE ---
EVENT DATE: October 01, 2018 CHIEF COMPLAINT Followup for metastatic lung cancer. HISTORY OF PRESENT ILLNESS Patient is a 58-year-old female who was seen today in followup. She continues on Tarceva, which she feels she is tolerating fairly well. She has minimal rash and is no longer taking minocycline. She has intermittent diarrhea, which she controls with Imodium. She does have some fatigue. Her biggest issue is eye irritation from eyelash issues. She is using LiquiTears for this. She uses oxygen at night, which is helpful. She otherwise denies any new complaints. ONCOLOGY HISTORY Metastatic lung adenocarcinoma, EGFR exon 19 mutation. a. June 2017, patient presents with wheezing, cough, and shortness of breath. b. CT angiogram at that time shows no evidence of PE, but there was consolidation of left upper lobe. c. Followup CT scan on August 02, 2017, shows worsening consolidation of the left upper lobe, and patient is sent for bronchoscopy. d. August 08, 2017: Bronchoscopy is performed. Pathology reveals evidence of malignant cells consistent with adenocarcinoma of lung origin. e. August 21, 2017: Patient undergoes CT/PET scan, which reveals hypermetabolic consolidation of left lower lobe, and a 3.5 cm left lower lobe bulla with borderline hypermetabolism and mild hypermetabolic uptake in the subcarinal area. There was also bilateral supraclavicular and base of neck lymph nodes. f. 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 g. September 20, 2017, patient undergoes ultrasound-guided left thoracentesis. Pathology again revealed malignant cells compatible with metastatic adenocarcinoma of lung origin. Molecular profiling studies are performed revealing EGFR exon 19 deletion. h. Early October 2017: Patient begins palliative erlotinib after some insurance delays. i. CT/PET scan performed on February 14, 2018: Interval positive response to therapy. Significant interval reexpansion of left upper lobe with some minimum consolidation in the lingula. FDG uptake in the consolidated left upper lobe now has a max SUV of 4.7, previously 13.4. Interval resolution of the FDG-avid supraclavicular adenopathy with no new sites of disease. There is a small, left-sided pleural effusion and a small pericardial effusion which are new without FDG uptake. There are stable bullae in the left lower lobe without significant FDG uptake. j. May 21, 2018: CT/PET scan reveals stable to improved findings with a mass-like left upper lobe opacity that is no longer significantly FDG avid, although there is some mild warm activity within it. There is a trace left pleural effusion that is stable and not significantly FDG avid. There is no evidence of hypermetabolic metastatic disease. k. August 18, 2018: CT/PET: Trace left pleural effusion smaller than prior and not FDG avid. Otherwise no change in comparison to May 21, 2018, scan. Mass-like lingular opacity is stable in size and not FDG avid. There is no evidence of hypermetabolic metastatic disease. PAST MEDICAL HISTORY 1. Metastatic lung cancer, EGFR exon 19 mutation positive, August 2017. 2. Hypertension. PAST SURGICAL HISTORY Sinus surgery. FAMILY HISTORY Negative for malignancies. SOCIAL HISTORY Patient is single. She has no children. She currently lives with her mother. She is no longer working. She does not have a history of alcohol abuse or illicit drug use. She is a never-smoker. MEDICATIONS 1. Imodium p.r.n. 2. Minocycline p.r.n. 3. Lisinopril 20 mg daily. 4. Erlotinib 150 mg daily. ALLERGIES No known drug allergies. REVIEW OF SYSTEMS A 12-point review of systems is performed and is negative except as stated above. PHYSICAL EXAMINATION VITAL SIGNS: Weight 111.1 kg, BP 133/52, P 66, R 16, temp 98.1, O2 sat 93%. GENERAL: Patient is a well-developed, well-nourished female in no acute distress. HEAD: Normocephalic, atraumatic. EYES: Sclerae anicteric. Mild trichomegaly with several inward-facing eyelashes. MOUTH: Moist mucous membranes. No lesions. NECK: Supple. No adenopathy. LUNGS: Clear bilaterally. CARDIOVASCULAR: Heart rate regular, 66 per minute, without murmur, S3 or S4. ABDOMEN: Soft, nontender, with active bowel sounds. No organomegaly. EXTREMITIES: No edema. NEURO: Nonfocal. SKIN: A minimal papular rash noted on face, arms, and chest wall. LABORATORY CBC today reveals a WBC of 6.1, hemoglobin 14.8, hematocrit 44.1, platelets 264,000. CMP is pending. IMPRESSION AND PLAN The patient is a 58-year-old never-smoker who developed metastatic lung adenocarcinoma, EGFR exon 19 mutation positive, in August 2017. She began erlotinib in early October 2017. Disease has been stable since that time. 1. Metastatic lung cancer. Continue erlotinib 150 mg daily. She is tolerating this fairly well. She has intermittent diarrhea, which is controlled with Imodium. She also has mild rash, but is not taking minocycline at this time. 2. Response. A CT/PET scan in August 2018 showed a trace left pleural effusion, smaller than prior and not FDG avid. No further change compared to the May 21, 2018, scan. Will repeat scan (either PET scan or CT scan) in mid October 2018. 3. Eye irritation. Continue LiquiTears. This is helping somewhat. 4. Follow up at the end of October for review of next scan, or earlier if there is a problem. MTDD
[~2018-10-28 09:27] MED LIST changes: +ALTEPLASE RECOMB 2 MG VIAL IVP PRN; +DEXTROSE 5%(*) 100 ML BAG 100 ML IVPB PRN; +NS(*) 0.9% 100 ML BAG 100 ML IVPB PRN; +NS(*) 0.9% 500 ML BAG 500 ML IV PRN; +WATER FOR INJ,STERILE 20 ML IVP PRN
[2018-10-28 09:35] VITALS: BP 131/60
[2018-10-28] MEDS: HEPARIN FLSH (PORT) 500 UN/5ML IVP PRN (09:45)
== END 2018-11-20 ==
LOC: SPU 09:27
PROVIDERS: ATTEND Internal Medicine Medical Oncology
DX: Z51.11 Encounter for antineoplastic chemotherapy (principal); C77.0 Secondary and unspecified malignant neoplasm of lymph nodes of head, face and neck; C34.12 Malignant neoplasm of upper lobe, left bronchus or lung; R19.7 Diarrhea, unspecified; R53.83 Other fatigue; I10 Essential (primary) hypertension; H57.9 Unspecified disorder of eye and adnexa; Z79.811 Long term (current) use of aromatase inhibitors
CPT/HCPCS: 36415; 36591; 85025; 96523; 99212; J1642; 82040; 82247; 82310; 82374; 82435; 82565; 82947; 84075; 84132; 84155; 84295; 84450; 84460; 84520; 99211

== ENCOUNTER 2019-02-18 08:58 | Outpatient (RCR) | payer BC ==
[2018-11-26 13:10] VITALS: BP 146/80
[2018-11-26 15:19] LABS: PLATELET COUNT, AUTOMATED 282 K/uL (150-450)
[2018-11-26] MEDS: LIDOCAINE/SOD BICARB 8.4% SYR ID PRN (16:00)
[2018-11-26] MEDS: HEPARIN FLSH (PORT) 500 UN/5ML IVP PRN (16:00)
--- NOTE | 2018-11-27 05:15 | ONCOLOGY FOLLOW UP NOTE ---
EVENT DATE: November 26, 2018 CHIEF COMPLAINT Followup for metastatic lung cancer. HISTORY OF PRESENT ILLNESS Patient is a 58-year-old female who was seen today in followup. She continues on Tarceva, which she feels she is tolerating fairly well. She has had an intermittent rash, which seems to wax and wane in severity and intensity. She is not currently on minocycline and tells me that she never actually really started this. She does have some intermittent diarrhea, also related to Tarceva, which she is able to control with Imodium. She tells me that she may go several weeks without having to take any Imodium, but on average may have to take two tablets one day every week. She also has some fatigue. She uses oxygen at night. Today, she denies any new symptoms. She reports ongoing rash, which recently flared a bit more, and she has noticed some papules on her face, under her nose. She believes she may have some in her nose, and at times this causes her to feel excessive nasal dryness. She is using some topical ointments. ONCOLOGY HISTORY Metastatic lung adenocarcinoma, EGFR exon 19 mutation. a. June 2017, patient presents with wheezing, cough, and shortness of breath. b. CT angiogram at that time shows no evidence of PE, but there was consolidation of left upper lobe. c. Followup CT scan on August 02, 2017, shows worsening consolidation of the left upper lobe, and patient is sent for bronchoscopy. d. August 08, 2017: Bronchoscopy is performed. Pathology reveals evidence of malignant cells consistent with adenocarcinoma of lung origin. e. August 21, 2017: Patient undergoes CT/PET scan, which reveals hypermetabolic consolidation of left lower lobe, and a 3.5 cm left lower lobe bulla with borderline hypermetabolism and mild hypermetabolic uptake in the subcarinal area. There was also bilateral supraclavicular and base of neck lymph nodes. f. September 11, 2017, MRI brain: No evidence of OFFICE INSPECTOR metastatic disease. g. September 20, 2017, patient undergoes ultrasound-guided left thoracentesis. Pathology again revealed malignant cells compatible with metastatic adenocarcinoma of lung origin. Molecular profiling studies are performed revealing EGFR exon 19 deletion. h. Early October 2017: Patient begins palliative erlotinib after some insurance delays. i. CT/PET scan performed on February 14, 2018: Interval positive response to therapy. Significant interval reexpansion of left upper lobe with some minimum consolidation in the lingula. FDG uptake in the consolidated left upper lobe now has a max SUV of 4.7, previously 13.4. Interval resolution of the FDG-avid supraclavicular adenopathy with no new sites of disease. There is a small, left-sided pleural effusion and a small pericardial effusion which are new without FDG uptake. There are stable bullae in the left lower lobe without significant FDG uptake. j. May 21, 2018: CT/PET scan reveals stable to improved findings with a mass-like left upper lobe opacity that is no longer significantly FDG avid, although there is some mild warm activity within it. There is a trace left pleural effusion that is stable and not significantly FDG avid. There is no evidence of hypermetabolic metastatic disease. k. August 18, 2018: CT/PET: Trace left pleural effusion smaller than prior and not FDG avid. Otherwise no change in comparison to May 21, 2018, scan. Mass-like lingular opacity is stable in size and not FDG avid. There is no evidence of hypermetabolic metastatic disease. PAST MEDICAL HISTORY 1. Metastatic lung cancer, EGFR exon 19 mutation positive, August 2017. 2. Hypertension. PAST SURGICAL HISTORY Sinus surgery. FAMILY HISTORY Negative for malignancies. SOCIAL HISTORY Patient is single. She has no children. She currently lives with her mother. She is no longer working. She does not have a history of alcohol abuse or illicit drug use. She is a never-smoker. MEDICATIONS 1. Imodium p.r.n. 2. Minocycline p.r.n. 3. Lisinopril 20 mg daily. 4. Erlotinib 150 mg daily. ALLERGIES No known drug allergies. REVIEW OF SYSTEMS CONSTITUTIONAL: Patient denies any recent fevers, chills, or night sweats. No recent infections. HEENT: She denies any blurry vision or vision changes. She denies any tinnitus. No mucositis. She does have a rash, which she believes has spread with a couple of papules into her nostrils bilaterally. LUNGS: She denies any shortness of breath. No significant dyspnea on exertion. No hemoptysis. No pleuritic chest pain. CARDIOVASCULAR: She denies any chest pain. No syncope or presyncope. ABDOMEN: No abdominal pain. No nausea or vomiting at all. No constipation. She does have some intermittent diarrhea, which tends to wax and wane related to Tarceva. She uses Imodium occasionally, usually no more than two tablets in a 24-hour period. This usually only occurs once a week. No bright red blood per rectum or melena. EXTREMITIES: She denies any edema. PSYCH: She denies any severe anxiety, severe depression, suicidal or homicidal ideation. NEURO: She denies any headache or focal areas of weakness or paresthesias. She denies any seizure-like activity. DERM: She continues to notice a rash related to her Tarceva, mostly on her upper extremities, anterior and posterior chest. She also has a rash noted on her face. She is using topical ointments. The remainder of a 12-point review of systems is performed today and is otherwise negative. PHYSICAL EXAMINATION VITAL SIGNS: No weight taken today. Temperature 97.1 degrees Fahrenheit, P 66, R 16, BP 136/72, oxygen saturation 96% on room air. GENERAL: In general, this is a pleasant, somewhat obese 58-year-old woman who appears well nourished, well hydrated, and is in no acute distress. HEAD: Normocephalic, atraumatic. EYES: Sclerae anicteric. Mild trichomegaly with several inward-facing eyelashes. ENT/MOUTH: Moist mucous membranes. No mucositis. No other lesions. NECK: Supple. No adenopathy. No JVD. LUNGS: Clear breath sounds to auscultation bilaterally. CARDIOVASCULAR: Heart rate regular. Rhythm: No ectopy. ABDOMEN: Soft, nontender, nondistended, with positive bowel sounds. No organomegaly. EXTREMITIES: No edema. No clubbing or cyanosis. NEURO: Grossly nonfocal. Patient is awake, alert, and oriented x3. PSYCH: Mood and affect are appropriate today. DERM: Patient has a grade 1 papular rash noted to her face, mostly under her nose and above her upper lip, anterior chest wall, bilateral upper extremities, and upper back. No open lesions or drainage. No pus. LABORATORY CBC and CMP ordered today and currently pending. IMAGING PET/CT at [facility] on 11/17/2018; (1) Left upper lobe bronchogenic malignancy is stable in size, but increase in glucose avidity, raising concern for recurrent disease. (2) No evidence of glucose-avid metastatic disease. (3) Left upper lobe lobulated mass measures 3.2 x 2.4 cm diameter, unchanged in size. However, glucose avidity has increased from SUV max 2.9 previously, now measuring 4.2. IMPRESSION AND PLAN The patient is a 58-year-old never-smoker who developed metastatic lung adenocarcinoma, EGFR exon 19 mutation positive, in August 2017. She began erlotinib in early October 2017. Disease has been stable since that time. She has been tolerating erlotinib pretty well. 1. Metastatic lung cancer: Patient is to continue with erlotinib 150 mg daily. She is overall tolerating this well, with grade 1 Tarceva-related diarrhea and grade 1 Tarceva-related rash. 2. Rash: Patient to continue using her topical emollient creams, and for her rash, I have recommended that she start minocycline 100 mg, one capsule p.o. b.i.d. She did not take this previously, but we have discussed this with her in the past. Her rash does not look infectious at this time, however. I am hopeful that low-dose minocycline can help stave off worsening of rash. Patient was provided with handwritten prescription today. She believes she has a bottle of minocycline at home which is a year old, and she is going to throw this away prior to starting this new prescription. 3. Referral: Patient does have a left upper extremity nevus, to the left anterior biceps, which she believes is larger. This may be a seborrheic keratosis; however, I am going to refer her Dermatology. I have ordered that she Dermatology here locally if possible. 4. Diarrhea: Patient is to continue to use Imodium as needed. 5. Eye irritation: She is to continue LiquiTears, as she has had difficulty with some inward-facing eyelashes in the past. She did not have any significant complaints today. 6. Labs ordered today are currently pending. If there are any abnormalities, we will notify her. 7. Imaging: We have reviewed her recent PET scan done on 11/17/2018. There is no sign of distant metastases; however, the known lung mass has increased in SUV. Size remains stable. I reviewed her PET scan today with Dr. Franks in clinic. I discussed with patient that our plan for now is for her to continue on Tarceva; however, I did explain to patient that she will likely need to be re-imaged in the future, and if this continues to increase, explained that she would likely need a change in treatment plan. Patient verbalized understanding. The patient was accompanied in the house by her mother and friend, who also verbalized understanding. 8. Comfort: For her nasal irritation and dryness, I have recommended that she start AYR topical intranasal saline gel. 9. Patient will return to clinic in two months for ongoing followup. ROSALIND
[2019-01-22] MEDS: LIDOCAINE/SOD BICARB 8.4% SYR ID PRN (10:21)
[2019-01-22] MEDS: HEPARIN FLSH (PORT) 500 UN/5ML IVP PRN (10:21)
[2019-01-22 10:23] VITALS: BP 135/65
--- NOTE | 2019-01-23 07:55 | ONCOLOGY FOLLOW UP NOTE ---
EVENT DATE: January 22, 2019 REASON FOR FOLLOWUP Metastatic lung adenocarcinoma, EGFR Exon 19 mutation, ongoing therapy with palliative erlotinib. INTERIM HISTORY Ms. Benito returns to clinic for a followup visit today. She is accompanied by her mother. She reports that she has been feeling about the same since our last visit. She feels tired at times but she reports no new pain. She denies fever. Her appetite has been pretty good. She is trying to get more physical activity. She has pretty good control over skin rash from Tarceva with no new complaints. She denies abdominal pain and she has had no recent changes in bowel or bladder habits. REVIEW OF SYSTEMS Otherwise negative and all systems reviewed. ONCOLOGY HISTORY Metastatic lung adenocarcinoma, EGFR exon 19 mutation. a. June 2017, patient presents with wheezing, cough, and shortness of breath. b. CT angiogram at that time shows no evidence of PE, but there was consolidation of left upper lobe. c. Followup CT scan on August 02, 2017, shows worsening consolidation of the left upper lobe, and patient is sent for bronchoscopy. d. August 08, 2017: Bronchoscopy is performed. Pathology reveals evidence of malignant cells consistent with adenocarcinoma of lung origin. e. August 21, 2017: Patient undergoes CT PET scan, which reveals hypermetabolic consolidation of left lower lobe, and a 3.5 cm left lower lobe bulla with borderline hypermetabolism and mild hypermetabolic uptake in the subcarinal area. There was also bilateral supraclavicular and base of neck lymph nodes. f. September 11, 2017, MRI brain: No evidence of APPLICATION PROJECT LEADER metastatic disease. g. September 20, 2017, patient undergoes ultrasound-guided left thoracentesis. Pathology again revealed malignant cells compatible with metastatic adenocarcinoma of lung origin. Molecular profiling studies are performed revealing EGFR exon 19 deletion. h. Early October,: Patient begins palliative erlotinib after some insurance delays. i. CT PET scan performed on February 14, 2018: Interval positive response to therapy. Significant interval reexpansion of left upper lobe with some minimum consolidation in the lingula. FDG uptake in the consolidated left upper lobe now has a max SUV of 4.7, previously 13.4. Interval resolution of the FDG-avid supraclavicular adenopathy with no new sites of disease. There is a small, left-sided pleural effusion and a small pericardial effusion which are new without FDG uptake. There are stable bullae in the left lower lobe without significant FDG uptake. j. May 21, 2018: CT PET scan reveals stable to improved findings with a mass-like left upper lobe opacity that is no longer significantly FDG avid, although there is some mild warm activity within it. There is a trace left pleural effusion that is stable and not significantly FDG avid. There is no evidence of hypermetabolic metastatic disease. k. August 18, 2018: CT PET: Trace left pleural effusion smaller than prior and not FDG avid. Otherwise no change in comparison to May 21, 2018 scan. Mass-like lingular opacity is stable in size and not FDG avid. There is no evidence of hypermetabolic metastatic disease. l. November 17, 2018: PET CT: Left upper lobe bronchogenic malignancy is stable in size but increase in glucose avidity, raising concern for recurrent disease. No evidence of glucose-avid metastatic disease. Left upper lobe lobulated mass measures 3.2 x 2.4 cm, unchanged. Glucose avidity has increased from 2.9 to 4.2. CURRENT MEDICATIONS 1. Minocycline. 2. Tarceva. 3. Triamcinolone cream as needed. 4. Tylenol as needed. 5. Vitamin D3. 6. Garlic. 7. Newly added Lisinopril. ALLERGIES No known drug allergies. SOCIAL HISTORY Patient is a nonsmoker. There is no history of alcohol abuse or illicit drug use. FAMILY HISTORY Noncontributory. VITAL SIGNS Temperature 98.6, blood pressure 135/65, heart rate 65, respirations 16, oxygen saturation 95% on room air, weight 245 pounds. PHYSICAL EXAMINATION GENERAL: Patient is alert and oriented x3, no apparent distress, sitting in the exam room chair. She appears healthy. HEENT: Anicteric sclerae. NEUROLOGIC: Grossly nonfocal and her gait is normal. SKIN: No concerning skin rash or lesion. LABORATORY STUDIES Reviewed per the [facility] record. IMAGING Please see Oncology History above. ASSESSMENT AND PLAN Metastatic lung adenocarcinoma, EGFR exon 19 mutation. I had a good visit with Vandana and her mother today. Symptomatically, she seems to be doing quite well. She is tolerating ongoing palliative erlotinib with expected but modest toxicity. She is very happy about how things are going in this regard. We spent time today reviewing the results of her CT PET scan. Although the PET scan is otherwise stable without evidence of progression of disease, there are areas in the chest that are more hypermetabolic than prior and these areas are concerning for modest disease progression. We spent time today discussing her options. One option would be to continue with erlotinib as she has been doing and to order short-term re-imaging. Another option would be to review her situation with Radiation Oncology to see whether stereotactic radiation would be a possibility. We discussed that given this subtle change since her last CT PET scan, we do not want to change her systemic therapy as otherwise she seems to be doing well. She agrees with the plan for Radiation Oncology evaluation and she wishes for this to take place in [facility]. I will review her situation with Dr. Rivas and/or Mere at the [facility] [place] [facility]. We will be back in touch with her with opinion and likely visit in the Radiation Oncology Clinic there. All questions answered today. ROSALIND
[2019-02-16 08:59] VITALS: BP 134/74
--- NOTE | 2019-02-17 03:57 | ONCOLOGY FOLLOW UP NOTE ---
EVENT DATE: February 16, 2019 CHIEF COMPLAINT Followup for metastatic lung cancer. HISTORY OF PRESENT ILLNESS Patient is a 58-year-old female who is seen today in followup. She is generally doing well. She tolerates her Tarceva, although does have some fatigue. She continues on minocycline, which has been controlling her rash for the most part. She has diarrhea but controls this with Imodium two or three tabs per day. Her eyelashes are very short and curled, but she keeps them cut short so they do not "turn inside." She has met with Dr. Rivas in [place] and will begin stereotactic radiation to the left upper lobe lesion on 02/24/19. She has questions about the use of elderberry with radiation. ONCOLOGY HISTORY Metastatic lung adenocarcinoma, EGFR exon 19 mutation. a. June 2017: Patient presents with wheezing, cough, and shortness of breath. b. CT angiogram at that time shows no evidence of PE, but there is consolidation of left upper lobe. c. Followup CT scan on August 02, 2017, shows worsening consolidation of the left upper lobe, and patient is sent for bronchoscopy. d. August 08, 2017: Bronchoscopy is performed. Pathology reveals evidence of malignant cells consistent with adenocarcinoma of lung origin. e. August 21, 2017: Patient undergoes CT/PET scan, which reveals hypermetabolic consolidation of left lower lobe, and a 3.5 cm left lower lobe bulla with borderline hypermetabolism and mild hypermetabolic uptake in the subcarinal area. There was also bilateral supraclavicular and base of neck lymph nodes. f. September 11, 2017, MRI brain: No evidence of HISTOLOGY ASSISTANT metastatic disease. g. September 20, 2017: Patient undergoes ultrasound-guided left thoracentesis. Pathology again revealed malignant cells compatible with metastatic adenocarcinoma of lung origin. Molecular profiling studies are performed revealing EGFR exon 19 deletion. h. Early October 2017: Patient begins palliative erlotinib after some insurance delays. i. CT/PET scan performed on February 14, 2018: Interval positive response to therapy. Significant interval reexpansion of left upper lobe with some minimum consolidation in the lingula. FDG uptake in the consolidated left upper lobe now has a max SUV of 4.7, previously 13.4. Interval resolution of the FDG-avid supraclavicular adenopathy with no new sites of disease. There is a small, left-sided pleural effusion and a small pericardial effusion which are new without FDG uptake. There are stable bullae in the left lower lobe without significant FDG uptake. j. May 21, 2018: CT/PET scan reveals stable to improved findings with a mass-like left upper lobe opacity that is no longer significantly FDG avid, although there is some mild warm activity within it. There is a trace left pleural effusion that is stable and not significantly FDG avid. There is no evidence of hypermetabolic metastatic disease. k. August 18, 2018, CT/PET: Trace left pleural effusion smaller than prior and not FDG avid. Otherwise no change in comparison to May 21, 2018, scan. Mass-like lingular opacity is stable in size and not FDG avid. There is no evidence of hypermetabolic metastatic disease. l. PET/CT on 11/17/18 showed the left upper lobe bronchogenic malignancy was stable in size but with an increase in glucose avidity, raising concern for concurrent disease. No other metastatic disease noted. Mass measured 3.2 x 2.4 cm, unchanged, but SUV increased from 2.9 to 4.2. PAST MEDICAL HISTORY 1. Metastatic lung cancer, EGFR exon 19 mutation positive, August 2017. 2. Hypertension. PAST SURGICAL HISTORY Sinus surgery. FAMILY HISTORY Negative for malignancies. SOCIAL HISTORY Patient is single. She has no children. She currently lives with her mother. She is no longer working. She does not have a history of alcohol abuse or illicit drug use. She is a never-smoker. MEDICATIONS 1. Imodium p.r.n. 2. Minocycline p.r.n. 3. Lisinopril 20 mg daily. 4. Erlotinib 150 mg daily. ALLERGIES No known drug allergies. REVIEW OF SYSTEMS A 12-point review of systems is performed and is negative except as stated above. PHYSICAL EXAMINATION VITAL SIGNS: BP 134/74, P 51, R 16, temp 97.8, O2 sat 92%. GENERAL: Patient is a well-developed, well-nourished female in no acute distress. HEAD: Normocephalic, atraumatic. EYES: Sclerae anicteric. Eyelashes are short and curling. MOUTH: Most mucous membranes. No lesions. NECK: Supple. No palpable adenopathy. LUNGS: Clear bilaterally. CARDIOVASCULAR: Heart rate regular, 52 per minute, without murmur. EXTREMITIES: No edema. NEURO: Nonfocal. SKIN: Mild, somewhat blotchy rash over forearms and back, with occasional lesions noted on breasts. No evidence of infection. LABORATORY No lab today. IMPRESSION The patient is a 58-year-old never-smoker who developed metastatic lung adenocarcinoma, EGFR exon 19 mutation positive, in August 2017. She began erlotinib in early October 2017. Recent PET scan showed a slight increase in SUV in the left upper lobe lesion, and she will begin stereotactic radiation on 02/24/19. 1. Metastatic lung cancer. Continue erlotinib 150 mg daily. She tolerates this well. 2. Gastrointestinal. Intermittent diarrhea. This is well controlled with Imodium two to three tabs per day. 3. Derm. Mild rash. She continues on minocycline daily, which has helped control this. 4. Increased SUV in left upper lobe lesion. She has met with Dr. Rivas and will begin SBRT for five treatments on 02/24/19. 5. Herbal supplements. She is using elderberry and garlic and had questions about their use with both radiation and erlotinib. I will update her once researched. 6. Follow up in three months for continued care. CBC and CMP will be drawn at that time. MTDD
[~2019-02-18 08:58] MED LIST changes: +LOSA25TA57 PO; +MINO50TA7 PO
[2019-02-18] MEDS: LIDOCAINE/SOD BICARB 8.4% SYR ID PRN (09:39)
[2019-02-18] MEDS: HEPARIN FLSH (PORT) 500 UN/5ML IVP PRN (09:39)
== END 2019-02-23 ==
LOC: SPU 08:58
PROVIDERS: ATTEND Internal Medicine Medical Oncology
DX: C34.12 Malignant neoplasm of upper lobe, left bronchus or lung (principal); C77.0 Secondary and unspecified malignant neoplasm of lymph nodes of head, face and neck; R21 Rash and other nonspecific skin eruption; R19.7 Diarrhea, unspecified
CPT/HCPCS: 36591; 85025; 96523; 99212; J1642; 82040; 82247; 82310; 82374; 82435; 82565; 82947; 84075; 84132; 84155; 84295; 84450; 84460; 84520